=== PATIENT | female | born 1935 | race Caucasian/White ===

== ENCOUNTER 2017-04-05 21:21 | Inpatient (IN) | payer MEDICARE, BC ==
[2017-04-06] MEDS ORDERED: NORCO 5/325 MG PO PRN (06:00)
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
[2017-04-06] MEDS: Advair Hfa 230/21 Mcg COMMON CANISTER IH SCH ×2 (08:30→21:23)
[2017-04-06 09:28] LABS: BASOPHIL % 0.2 % (0.0-0.4); Eosinophil % 2.2 % (0.00-5.0); Lymphocytes % 18.5 % (24.0-44.0); Mean Cell Volume 97.3 fl (78-100); Mean Corpuscular Hemoglobin 28.8 pg (26-32); Mean Platelet Volume 10.3 fl (6-9.5); Monocytes % 14.1 % (0.0-12.0); Platelet Count 253 K/mm3 (150-450); Red Blood Count 3.33 M/mm3 (4.1-5.4); Red Cell Distribution Width 17.4 % (11.5-14.0); White Blood Count 4.2 K/mm3 (4.0-10.5)
[2017-04-06 09:37] LABS: INR 1.73 (0.8-3.0); PROTIME 19.7 SECONDS (9.95-12.35)
[2017-04-06] MEDS ORDERED: MILK OF MAGNESIA 30 ML NG PRN (09:54)
[2017-04-06] MEDS ORDERED: NON-FORMULARY ITEM (Ondansetron 4 MG) NG PRN (09:54)
[2017-04-06] MEDS ORDERED: Dulcolax 10 MG SUPP PR PRN (09:54)
[2017-04-06 09:56] LABS: Collection Type VOID; Leukocyte Esterase 2+ (NEGATIVE)
[2017-04-06 09:57] LABS: ADD URINE CULTURE? YES (NO); Bilirubin NEGATIVE (NEGATIVE); Blood 250 Ery/ul (0-5); COMPLETE URINE MICROSCOPIC? YES; Glucose NEGATIVE (NEGATIVE)
[2017-04-06] MEDS ORDERED: OCEAN Nasal Spray NS PRN (10:00)
[2017-04-06] MEDS ORDERED: ZINC SULFATE 220 MG NG SCH (10:00)
[2017-04-06] MEDS ORDERED: CALCIUM CARBONATE NG SCH (10:00)
[2017-04-06] MEDS ORDERED: PULMICORT 0.5 MG/2 ML RESPULES IH SCH (10:00)
[2017-04-06] MEDS ORDERED: [UNRECOGNIZED DRUG - OTHER] NG SCH (10:00)
[2017-04-06] MEDS ORDERED: NON-FORMULARY ITEM (Lansoprazole [Lansoprazole] 30 MG) NG SCH (10:00)
[2017-04-06] MEDS ORDERED: MULTIVITAMIN WITH MINERALS NG SCH (10:00)
[2017-04-06] MEDS ORDERED: VITAMIN D2 NG SCH (10:00)
[2017-04-06 10:05] LABS: Bacteria MANY /HPF (NEGATIVE); Epithelial Cells FEW /HPF (FEW); WBC >100 /HPF (0-5)
[2017-04-06 10:08] LABS: ALBUMIN 2.4 g/dL (3.4-5.0); ALKALINE PHOSPHATASE 191 U/L (46-116); ANION GAP 8.3 MEQ/L (5-15); BLOOD UREA NITROGEN 26 mg/dL (9-20); CHLORIDE 104 mEq/L (98-107); Carbon Dioxide 33.4 mEq/L (21-32); Glucose 98 MG/DL (70-110); Potassium 3.8 mEq/L (3.5-5.1); SGOT/AST 24 U/L (15-37); SGPT/ALT 19 U/L (12-78); SODIUM 142 mEq/L (136-145); Total Protein 6.6 gm/dL (6.4-8.2)
[2017-04-06] MEDS ORDERED: MEDICATION INTERVENTION MC PRN (10:44)
[2017-04-06] MEDS: ENOXAPARIN SODIUM SQ SCH ×2 (11:19→23:16)
[2017-04-06] MEDS: Ditropan 5 MG NG SCH ×2 (11:19→23:16)
[2017-04-06] MEDS: Lexapro 10 MG NG SCH (11:21)
[2017-04-06] MEDS: Flonase NASAL NS SCH ×2 (11:21→23:20)
[2017-04-06] MEDS: Vitamin C 500 MG NG SCH (11:22)
[2017-04-06] MEDS: THERAGRAN MULTIVITAMIN PO SCH (11:22)
[2017-04-06] MEDS: SYNTHROID 50 MCG NG SCH (11:22)
[2017-04-06] MEDS: Robitussin 100 MG/5 ML NG SCH ×5 (11:23→22:35)
[2017-04-06] MEDS: PERIDEX MM SCH ×2 (11:24→23:20)
[2017-04-06] MEDS: Protonix 40MG Tablet PEG SCH (11:24)
[2017-04-06] MEDS: Lopressor 25MG Tab PO SCH ×2 (11:25→21:05)
[2017-04-06] MEDS: NORVASC 5 MG NG SCH (11:25)
[2017-04-06] MEDS: Calcium 500MG W/Vit D Tablet NG SCH ×2 (11:34→21:06)
[2017-04-06] MEDS: Lidoderm Patch 5% TOP SCH (11:46)
[2017-04-06] MEDS ORDERED: NORCO 5/325 MG PO SCH (12:00)
[2017-04-06] MEDS: BACTRIM DS TABLET PO SCH (17:24)
[2017-04-06] MEDS ORDERED: Coumadin 5 MG NG SCH (18:00)
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
[2017-04-06] MEDS: NORCO 5/325 MG PO PRN (21:04)
[2017-04-06] MEDS: ZOCOR 20MG NG SCH (21:05)
[2017-04-06] MEDS ORDERED: LIPITOR 40MG NG SCH (22:00)
[2017-04-06] MEDS ORDERED: PYRIDOXINE HCL NG SCH (22:00)
[2017-04-06] MEDS ORDERED: MELATONIN NG SCH (22:00)
[2017-04-07] MEDS: Robitussin 100 MG/5 ML NG SCH ×7 (02:35→21:58)
[2017-04-07] MEDS: Advair Hfa 230/21 Mcg COMMON CANISTER IH SCH ×2 (07:22→19:09)
[2017-04-07] MEDS: BACTRIM DS TABLET PO SCH ×2 (07:52→17:23)
[2017-04-07] MEDS: Calcium 500MG W/Vit D Tablet NG SCH ×2 (10:13→22:03)
[2017-04-07] MEDS: SYNTHROID 50 MCG NG SCH (10:13)
[2017-04-07] MEDS: Lexapro 10 MG NG SCH (10:13)
[2017-04-07] MEDS: NORVASC 5 MG NG SCH (10:13)
[2017-04-07] MEDS: Protonix 40MG Tablet PEG SCH (10:13)
[2017-04-07] MEDS: THERAGRAN MULTIVITAMIN PO SCH (10:13)
[2017-04-07] MEDS: Lopressor 25MG Tab PO SCH ×2 (10:14→21:38)
[2017-04-07] MEDS: Vitamin C 500 MG NG SCH (10:14)
[2017-04-07] MEDS: Ditropan 5 MG NG SCH ×2 (10:15→22:03)
[2017-04-07] MEDS: PERIDEX MM SCH ×3 (10:57→21:57)
[2017-04-07] MEDS: Lidoderm Patch 5% TOP SCH (11:02)
[2017-04-07] MEDS: ENOXAPARIN SODIUM SQ SCH ×2 (11:05→22:03)
[2017-04-07] MEDS: Zinc Gluconate 50 MG PO SCH (11:05)
[2017-04-07] MEDS: Flonase NASAL NS SCH ×3 (11:05→21:55)
[2017-04-07] MEDS ORDERED: Coumadin 5 MG NG SCH (18:00)
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
[2017-04-07] MEDS: ZOCOR 20MG NG SCH (21:52)
[2017-04-07] MEDS: NORCO 5/325 MG PO PRN (23:48)
[2017-04-08] MEDS: Robitussin 100 MG/5 ML NG SCH ×4 (02:22→14:33)
[2017-04-08 06:13] LABS: INR 3.31 (0.8-3.0); PROTIME 37.9 SECONDS (9.95-12.35)
[2017-04-08] MEDS: Advair Hfa 230/21 Mcg COMMON CANISTER IH SCH ×2 (07:32→19:49)
[2017-04-08] MEDS: BACTRIM DS TABLET PO SCH ×2 (08:03→17:41)
--- NOTE | 2017-04-08 08:44 | PCM.NOTE ---
Date and Time: 04/08/17 08 Subjective Assessment: doing well did well with the water with speech yesterday took a few steps from the bed to the chair yesterday she states pain is controlled right now and "as expected" she denies nausea states it does come and go at times. she states her pain in her legs is improving every day. no shortness of breath now. no chest pain Objective Exam General Appearance: no apparent distress, alert Neurologic Exam: alert, cooperative, normal mood/affect Skin Exam: normal color, warm, dry Eye Exam: PERRL, EOMI, eyes nml inspection Ears, Nose, Throat Exam: pharynx normal, moist mucous membranes Neck Exam: normal inspection, non-tender, supple Respiratory Exam: normal breath sounds, lungs clear, No respiratory distress Cardiovascular Exam: regular rate/rhythm, murmur, No edema Gastrointestinal/Abdomen Exam: soft, No tenderness, No mass Extremity Exam: other (right leg wrapped able to move toes warm lower extremity no swelling left leg in walking boot) Back Exam: normal inspection, normal range of motion Pelvic Exam: deferred Rectal Exam: deferred OBJECTIVE DATA Vital Signs: Vital Signs - 24 hr Temp Pulse Resp BP Pulse Ox 04/08/17 08:00 98 F 55 L 18 162/70 97 04/08/17 07:35 56 L 16 97 04/08/17 04:08 98.0 F 54 L 15 166/65 96 04/08/17 00:00 98.5 F 63 20 141/68 93 L 04/07/17 21:26 58 L 16 96 04/07/17 20:00 98.3 F 64 17 147/66 95 04/07/17 16:00 97.9 F 67 20 157/69 98 04/07/17 12:00 98.3 F 58 L 20 134/64 96 04/07/17 10:00 58 L 16 96 Oxygen-Last 24 hours O2 Percentage 2 Liters = 28% O2 Percentage 2 Liters = 28% O2 Percentage 2 Liters = 28% O2 Percentage 2 Liters = 28% O2 Percentage 2 Liters = 28% O2 Percentage 2 Liters = 28% Pain Assessment - Last Documented Pain Intensity 1 Pain Scale Used FLACC Intake and Output: Intake & Output 04/05/17 04/06/17 04/07/17 04/08/17 11:59 11:59 11:59 11:59 Intake Total 460 400 Output Total 1700 650 350 Balance -1700 -190 50 Weight 70.806 kg Lab Results: Lab Results-Last 24 Hours 04/08/17 Range/Units 05:50 INR 3.31 H (0.8-3.0) Radiology Exams: Radiology Procedures Category Date Time Status MODIFIED BARIUM SWALLOW (RAD) [MODIFIED BARIUM SWALLOW Exams 04/06/17 13:00 Completed EXAM] Urgent Multi-Disciplinary Progress Notes: Multi-Disciplinary Progress Notes 04/08/17 02:56 Respiratory Note by Davina Silva around 2330 i asked the pt if she was ready to go on her bipap. pt replys no. i explained to her to call the nurse when she is ready to go to sleep. Initialized on 04/08/17 02:56 - END OF NOTE 04/07/17 21:35 RT Documentation Review by Davina Silva THIS CHART WAS REVIEWED. NOT SURE WHY IT'S NOT SHOWING UP HERE. Respiratory Assessments/Treatments reviewed by Davina Silva on 04/07/17 at 2135. Initialized on 04/07/17 21:35 - END OF NOTE 04/07/17 19:01 Speech Therapy Note by Manasa Zabala Swallow treatment: 18:20-18:50 Patient awake/alert in bed. Repositioned at 90 % upright. Trialled ice chips without clinical s/s of aspiration. Patient tolerated medication in applesauce without crushing without clinical s/s of aspiration. Recommend nursing to continue with this type of medication presentation. Thin liquid intake trials with cup presentation resulted in large cough/choke occurring 2/2 trials. When thin liquid intake presented via teaspoon, patient demonstrated no clinical s/s of aspiration 12/[address] to continue for swallow treatment. Continue current diet/liquid consistency. Recommend patient be allowed to consume ice chips when requested for pleasure. Nursing to notify physician. MS Ashlee, CCC/DATA [employer] Initialized on 04/07/17 19:01 - END OF NOTE Assessment/Plan (1) Acute delirium Current Visit: Yes Status: Acute Assessment & Plan: improving with prn meeks medication and uti treatment ng removed yesterday still low po intake but no evidence of aspiration continues to work with ST and PT on the Bactrim awaiting culture results peterson is out now as well. Code(s): R41.0 - DISORIENTATION, UNSPECIFIED (2) Open fracture of tibia and fibula Current Visit: Yes Status: Acute Code(s): S82.209B - UNSP FX SHAFT OF UNSP TIBIA, INIT FOR OPN FX TYPE I/2; S82.409B - UNSP FX SHAFT OF UNSP FIBULA, INIT FOR OPN FX TYPE I/2 (3) Pharyngeal dysphagia Current Visit: Yes Status: Acute Code(s): R13.13 - DYSPHAGIA, PHARYNGEAL PHASE (4) Moderate protein-calorie malnutrition Current Visit: Yes Status: Acute Code(s): E44.0 - MODERATE PROTEIN-CALORIE MALNUTRITION (5) History of mitral valve replacement Current Visit: Yes Status: Chronic Assessment & Plan: inr therapeutic today at 3.3 it looks like warfarin was just restarted on 04/05 possibly and rather large jump will hold warfarin today and repeat inr in am continue lovenox for 2 days of therapeutic bridge Code(s): Z95.2 - PRESENCE OF PROSTHETIC HEART VALVE (6) Hyperlipidemia Current Visit: Yes Status: Chronic Code(s): E78.5 - HYPERLIPIDEMIA, UNSPECIFIED (7) Hypothyroidism Current Visit: Yes Status: Chronic Code(s): E03.9 - HYPOTHYROIDISM, UNSPECIFIED (8) Hypertension Current Visit: Yes Status: Chronic Assessment & Plan: remains elevated will increase amlodipine from 2.5 to 5 mg Code(s): I10 - ESSENTIAL (PRIMARY) HYPERTENSION (9) GERD (gastroesophageal reflux disease) Current Visit: Yes Status: Chronic Code(s): K21.9 - GASTRO-ESOPHAGEAL REFLUX DISEASE WITHOUT ESOPHAGITIS (10) Constipation Current Visit: Yes Status: Chronic Code(s): K59.00 - CONSTIPATION, UNSPECIFIED (11) Wounds, multiple Current Visit: Yes Status: Acute Code(s): T07 - UNSPECIFIED MULTIPLE INJURIES (12) UTI (urinary tract infection) Current Visit: Yes Status: Acute Qualifiers: Urinary tract infection type: acute cystitis Code(s): N39.0 - URINARY TRACT INFECTION, SITE NOT SPECIFIED (13) Atrial fibrillation Current Visit: Yes Status: Resolved Code(s): I48.91 - UNSPECIFIED ATRIAL FIBRILLATION (14) Anemia Current Visit: Yes Status: Acute Code(s): D64.9 - ANEMIA, UNSPECIFIED
[2017-04-08] MEDS: Calcium 500MG W/Vit D Tablet NG SCH ×2 (10:22→22:21)
[2017-04-08] MEDS: THERAGRAN MULTIVITAMIN PO SCH (10:22)
[2017-04-08] MEDS: Lopressor 25MG Tab PO SCH ×2 (10:22→22:21)
[2017-04-08] MEDS: Protonix 40MG Tablet PEG SCH (10:22)
[2017-04-08] MEDS: Lexapro 10 MG NG SCH (10:22)
[2017-04-08] MEDS: SYNTHROID 50 MCG NG SCH (10:22)
[2017-04-08] MEDS: NORVASC 5 MG NG SCH (10:22)
[2017-04-08] MEDS: Vitamin C 500 MG NG SCH (10:22)
[2017-04-08] MEDS: Flonase NASAL NS SCH ×2 (10:23→22:22)
[2017-04-08] MEDS: PERIDEX MM SCH ×2 (10:23→22:31)
[2017-04-08] MEDS: Zinc Gluconate 50 MG PO SCH (10:24)
[2017-04-08] MEDS: Lidoderm Patch 5% TOP SCH (10:25)
[2017-04-08] MEDS: Ditropan 5 MG NG SCH ×2 (10:28→22:21)
[2017-04-08] MEDS: ENOXAPARIN SODIUM SQ SCH ×2 (10:28→22:22)
[2017-04-08] MEDS: ONDANSETRON ODT PO PRN ×2 (11:31→22:28)
[2017-04-08] MEDS ORDERED: Robitussin 100 MG/5 ML NG PRN (14:01)
[2017-04-08] MEDS: NORCO 5/325 MG PO PRN (14:34)
[2017-04-08] MEDS: ZOCOR 20MG NG SCH (22:21)
[2017-04-09] MEDS: Advair Hfa 230/21 Mcg COMMON CANISTER IH SCH (06:52)
[2017-04-09] MEDS: BACTRIM DS TABLET PO SCH (07:53)
[2017-04-09] MEDS: NORCO 5/325 MG PO PRN ×2 (08:18→15:50)
[2017-04-09] MEDS: ONDANSETRON ODT PO PRN (08:18)
[2017-04-09 09:29] LABS: PROTIME 73.4 SECONDS (9.95-12.35)
[2017-04-09 09:36] LABS: INR 6.52 (0.8-3.0)
[2017-04-09] MEDS ORDERED: Colace 100 MG PO SCH (10:00)
[2017-04-09] MEDS: THERAGRAN MULTIVITAMIN PO SCH (10:39)
[2017-04-09] MEDS: Ditropan 5 MG NG SCH (10:40)
[2017-04-09] MEDS: Lexapro 10 MG NG SCH (10:40)
[2017-04-09] MEDS: SYNTHROID 50 MCG NG SCH (10:40)
[2017-04-09] MEDS: Protonix 40MG Tablet PEG SCH (10:40)
[2017-04-09] MEDS: Lopressor 25MG Tab PO SCH (10:40)
[2017-04-09] MEDS: Vitamin C 500 MG NG SCH (10:40)
[2017-04-09] MEDS: Calcium 500MG W/Vit D Tablet NG SCH (10:41)
[2017-04-09] MEDS: NORVASC 5 MG NG SCH (10:41)
[2017-04-09] MEDS: Flonase NASAL NS SCH (10:41)
[2017-04-09] MEDS: Lidoderm Patch 5% TOP SCH (10:42)
[2017-04-09] MEDS: PERIDEX MM SCH (10:42)
[2017-04-09] MEDS: Zinc Gluconate 50 MG PO SCH (10:51)
[2017-04-09 12:08] VITALS: BP 135/63; PULSE 57; O2SAT 96
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
[2017-04-09] MEDS ORDERED: ZOFRAN ODT 4 MG PO PRN (13:15)
== END 2017-04-09 15:45 | disposition swing bed (61) | DRG 948 ==
LOC: MED SURG 21:21 → UNDOADMIN 21:21
PROVIDERS: ADMIT Family Medicine; ATTEND Family Medicine
DX: R41.0 Disorientation, unspecified (principal); E44.0 Moderate protein-calorie malnutrition; N39.0 Urinary tract infection, site not specified; I25.810 Atherosclerosis of coronary artery bypass graft(s) without angina pectoris; S82.301E Unspecified fracture of lower end of right tibia, subsequent encounter for open fracture type I or II with routine healing; S82.491 Other fracture of shaft of right fibula; T07 Unspecified multiple injuries; V89.2XXD Person injured in unspecified motor-vehicle accident, traffic, subsequent encounter; R13.13 Dysphagia, pharyngeal phase; Z95.2 Presence of prosthetic heart valve; E78.5 Hyperlipidemia, unspecified; I10 Essential (primary) hypertension; E03.9 Hypothyroidism, unspecified; K21.9 Gastro-esophageal reflux disease without esophagitis; K59.00 Constipation, unspecified; I48.91 Unspecified atrial fibrillation; D64.9 Anemia, unspecified; J45.909 Unspecified asthma, uncomplicated; G47.30 Sleep apnea, unspecified; F32.9 Major depressive disorder, single episode, unspecified; K44.9 Diaphragmatic hernia without obstruction or gangrene; Z79.01 Long term (current) use of anticoagulants; Z79.899 Other long term (current) drug therapy
CPT/HCPCS: 36415; 74230; 80053; 81000; 84443; 85025; 85610; 87077; 87086; 87186; 94002; 94003; 94640; 94760; A6457; J1642; J1650; Q0162; A9270-GY

== ENCOUNTER 2017-04-09 15:45 | Inpatient (IN) | payer MEDICARE, BC ==
[2017-04-09] MEDS ORDERED: Robitussin 100 MG/5 ML NG PRN (16:22)
[2017-04-09] MEDS ORDERED: Dulcolax 10 MG SUPP PR PRN (16:22)
[2017-04-09] MEDS ORDERED: ZOFRAN ODT 4 MG PO PRN (16:24)
[2017-04-09] MEDS ORDERED: MILK OF MAGNESIA 30 ML NG PRN (16:24)
[2017-04-09] MEDS ORDERED: OCEAN Nasal Spray NS PRN (16:25)
[2017-04-09] MEDS ORDERED: MILK OF MAGNESIA 30 ML PO PRN (17:06)
[2017-04-09] MEDS: Advair Hfa 230/21 Mcg COMMON CANISTER IH SCH (17:08)
[2017-04-09 17:16] LABS: ANION GAP 13.7 MEQ/L (5-15); Carbon Dioxide 29.5 mEq/L (21-32)
[2017-04-09] MEDS: BACTRIM DS TABLET PO SCH (17:40)
[2017-04-09] MEDS: ZOCOR 20MG PO SCH (21:16)
[2017-04-09] MEDS: Colace 100 MG PO SCH (21:16)
[2017-04-09] MEDS: Lopressor 25MG Tab PO SCH (21:17)
[2017-04-09] MEDS: Ditropan 5 MG PO SCH (21:19)
[2017-04-09] MEDS: Flonase NASAL NS SCH (21:33)
[2017-04-09] MEDS ORDERED: Calcium 500MG W/Vit D Tablet NG SCH (22:00)
[2017-04-09] MEDS ORDERED: PERIDEX MM SCH (22:00)
[2017-04-10] MEDS: NORCO 5/325 MG PO PRN ×4 (03:41→19:29)
[2017-04-10] MEDS: Advair Hfa 230/21 Mcg COMMON CANISTER IH SCH ×2 (05:23→17:24)
[2017-04-10 07:13] LABS: PROTIME 62.8 SECONDS (9.95-12.35)
[2017-04-10 07:18] LABS: INR 5.46 (0.8-3.0)
[2017-04-10] MEDS: BACTRIM DS TABLET PO SCH ×2 (08:50→17:00)
[2017-04-10] MEDS: Colace 100 MG PO SCH ×2 (08:58→21:52)
[2017-04-10] MEDS: SYNTHROID 50 MCG PO SCH (08:58)
[2017-04-10] MEDS: Ditropan 5 MG PO SCH ×2 (08:58→21:53)
[2017-04-10] MEDS: Lopressor 25MG Tab PO SCH ×2 (09:00→21:52)
[2017-04-10] MEDS: Protonix 40MG Tablet PO SCH (09:00)
[2017-04-10] MEDS: Lexapro 10 MG PO SCH (09:01)
[2017-04-10] MEDS: NORVASC 5 MG PO SCH (09:01)
[2017-04-10] MEDS: Flonase NASAL NS SCH ×2 (09:01→21:57)
[2017-04-10] MEDS: Lidoderm Patch 5% TOP SCH (09:02)
[2017-04-10] MEDS: ZOFRAN ODT 4 MG PO PRN (09:02)
[2017-04-10] MEDS ORDERED: THERAGRAN MULTIVITAMIN PO SCH (10:00)
[2017-04-10] MEDS ORDERED: Vitamin C 500 MG NG SCH (10:00)
[2017-04-10] MEDS ORDERED: Zinc Gluconate 50 MG PO SCH (10:00)
[2017-04-10] MEDS ORDERED: Aplisol ID SCH (10:00)
[2017-04-10] MEDS: ZOCOR 20MG PO SCH (21:52)
[2017-04-11 07:27] LABS: INR 4.76 (0.8-3.0); PROTIME 54.6 SECONDS (9.95-12.35)
[2017-04-11] MEDS: BACTRIM DS TABLET PO SCH ×2 (08:56→17:46)
[2017-04-11] MEDS: Colace 100 MG PO SCH ×2 (08:56→22:23)
[2017-04-11] MEDS: Protonix 40MG Tablet PO SCH (08:56)
[2017-04-11] MEDS: NORVASC 5 MG PO SCH (08:56)
[2017-04-11] MEDS: Lidoderm Patch 5% TOP SCH (08:57)
[2017-04-11] MEDS: Lexapro 10 MG PO SCH (08:57)
[2017-04-11] MEDS: Lopressor 25MG Tab PO SCH ×2 (08:57→22:23)
[2017-04-11] MEDS: SYNTHROID 50 MCG PO SCH (08:57)
[2017-04-11] MEDS: Ditropan 5 MG PO SCH ×2 (09:14→22:23)
[2017-04-11] MEDS: NORCO 5/325 MG PO PRN ×2 (09:25→16:06)
[2017-04-11] MEDS: Flonase NASAL NS SCH ×2 (09:31→22:33)
[2017-04-11] MEDS: Advair Hfa 230/21 Mcg COMMON CANISTER IH SCH (19:24)
[2017-04-11] MEDS: ZOCOR 20MG PO SCH (22:23)
[2017-04-12 06:37] LABS: INR 3.94 (0.8-3.0); PROTIME 45.1 SECONDS (9.95-12.35)
[2017-04-12] MEDS: Advair Hfa 230/21 Mcg COMMON CANISTER IH SCH ×2 (07:06→20:08)
[2017-04-12] MEDS: BACTRIM DS TABLET PO SCH ×2 (08:10→17:12)
[2017-04-12] MEDS: Lexapro 10 MG PO SCH (10:54)
[2017-04-12] MEDS: Flonase NASAL NS SCH ×2 (10:54→21:51)
[2017-04-12] MEDS: Ditropan 5 MG PO SCH ×2 (10:55→21:48)
[2017-04-12] MEDS: Colace 100 MG PO SCH ×2 (10:55→21:48)
[2017-04-12] MEDS: Lidoderm Patch 5% TOP SCH ×2 (10:55→13:07)
[2017-04-12] MEDS: Protonix 40MG Tablet PO SCH (10:56)
[2017-04-12] MEDS: Lopressor 25MG Tab PO SCH ×2 (10:56→21:48)
[2017-04-12] MEDS: NORVASC 5 MG PO SCH (10:56)
[2017-04-12] MEDS: NORCO 5/325 MG PO PRN ×2 (11:00→17:12)
[2017-04-12] MEDS: ZOFRAN ODT 4 MG PO PRN (17:17)
[2017-04-12] MEDS ORDERED: Coumadin 2 MG PO SCH (18:00)
[2017-04-12] MEDS: ZOCOR 20MG PO SCH (21:48)
[2017-04-13 06:25] LABS: Mean Platelet Volume 9.8 fl (6-9.5); Platelet Count 281 K/mm3 (150-450); Red Blood Count 3.15 M/mm3 (4.1-5.4); Red Cell Distribution Width 16.8 % (11.5-14.0); White Blood Count 4.1 K/mm3 (4.0-10.5)
[2017-04-13 06:27] LABS: Mean Corpuscular Hemoglobin 28.5 pg (26-32)
[2017-04-13 06:45] LABS: INR 4.26 (0.8-3.0); PROTIME 48.9 SECONDS (9.95-12.35)
[2017-04-13] MEDS: Advair Hfa 230/21 Mcg COMMON CANISTER IH SCH ×2 (07:00→19:28)
[2017-04-13 07:34] LABS: ANISOCYTOSIS 1+; Eosinophil 1 % (0.00-3.0); Hypochromia 1+; Platelet Estimate NORMAL (NORMAL); Total Cells Counted 100
[2017-04-13] MEDS: BACTRIM DS TABLET PO SCH ×2 (07:55→17:11)
[2017-04-13] MEDS: Ditropan 5 MG PO SCH ×2 (09:06→21:57)
[2017-04-13] MEDS: Colace 100 MG PO SCH ×2 (09:06→21:57)
[2017-04-13] MEDS: NORVASC 5 MG PO SCH (09:06)
[2017-04-13] MEDS: Lexapro 10 MG PO SCH (09:07)
[2017-04-13] MEDS: SYNTHROID 50 MCG PO SCH (09:07)
[2017-04-13] MEDS: Protonix 40MG Tablet PO SCH (09:07)
[2017-04-13] MEDS: Lopressor 25MG Tab PO SCH ×2 (09:09→21:56)
[2017-04-13] MEDS: Lidoderm Patch 5% TOP SCH (09:13)
[2017-04-13] MEDS: Flonase NASAL NS SCH ×2 (09:17→22:09)
[2017-04-13] MEDS: NORCO 5/325 MG PO PRN (15:26)
[2017-04-13] MEDS: ZOCOR 20MG PO SCH (21:57)
[2017-04-14 05:58] LABS: INR 4.23 (0.8-3.0); PROTIME 48.5 SECONDS (9.95-12.35)
[2017-04-14] MEDS: Advair Hfa 230/21 Mcg COMMON CANISTER IH SCH ×3 (07:32→18:02)
[2017-04-14] MEDS: NORCO 5/325 MG PO PRN ×2 (07:53→14:09)
[2017-04-14] MEDS: BACTRIM DS TABLET PO SCH ×2 (07:54→17:15)
[2017-04-14] MEDS: Ditropan 5 MG PO SCH ×2 (09:00→21:59)
[2017-04-14] MEDS: SYNTHROID 50 MCG PO SCH (09:00)
[2017-04-14] MEDS: Protonix 40MG Tablet PO SCH (09:00)
[2017-04-14] MEDS: Lexapro 10 MG PO SCH (09:02)
[2017-04-14] MEDS: Colace 100 MG PO SCH ×2 (09:02→21:59)
[2017-04-14] MEDS: NORVASC 5 MG PO SCH (09:02)
[2017-04-14] MEDS: Flonase NASAL NS SCH ×2 (09:04→21:59)
[2017-04-14] MEDS: Lopressor 25MG Tab PO SCH ×2 (09:04→21:58)
[2017-04-14] MEDS: Lidoderm Patch 5% TOP SCH (09:07)
[2017-04-14] MEDS: ZOCOR 20MG PO SCH (21:59)
[2017-04-15] MEDS: Advair Hfa 230/21 Mcg COMMON CANISTER IH SCH ×2 (09:11→19:08)
[2017-04-15] MEDS: Lidoderm Patch 5% TOP SCH (09:18)
[2017-04-15] MEDS: SYNTHROID 50 MCG PO SCH (09:19)
[2017-04-15] MEDS: Protonix 40MG Tablet PO SCH (09:19)
[2017-04-15] MEDS: NORVASC 5 MG PO SCH (09:19)
[2017-04-15] MEDS: Colace 100 MG PO SCH ×2 (09:19→21:46)
[2017-04-15] MEDS: Lexapro 10 MG PO SCH (09:20)
[2017-04-15] MEDS: Ditropan 5 MG PO SCH ×2 (09:20→21:46)
[2017-04-15] MEDS: Lopressor 25MG Tab PO SCH ×2 (09:20→21:46)
[2017-04-15] MEDS: Flonase NASAL NS SCH ×2 (09:24→22:05)
[2017-04-15] MEDS: NORCO 5/325 MG PO PRN ×2 (11:42→21:46)
[2017-04-15] MEDS: ZOCOR 20MG PO SCH (21:46)
[2017-04-16 06:29] LABS: INR 1.67 (0.8-3.0)
[2017-04-16] MEDS: Advair Hfa 230/21 Mcg COMMON CANISTER IH SCH ×2 (07:33→19:39)
[2017-04-16] MEDS: SYNTHROID 50 MCG PO SCH (09:25)
[2017-04-16] MEDS: Ditropan 5 MG PO SCH ×2 (09:25→21:55)
[2017-04-16] MEDS: Lexapro 10 MG PO SCH (09:25)
[2017-04-16] MEDS: Lopressor 25MG Tab PO SCH ×2 (09:25→21:55)
[2017-04-16] MEDS: Colace 100 MG PO SCH ×2 (09:25→21:55)
[2017-04-16] MEDS: NORVASC 5 MG PO SCH (09:25)
[2017-04-16] MEDS: Protonix 40MG Tablet PO SCH (09:26)
[2017-04-16] MEDS: Lidoderm Patch 5% TOP SCH (09:26)
[2017-04-16] MEDS: Flonase NASAL NS SCH ×2 (09:26→21:55)
[2017-04-16] MEDS: NORCO 5/325 MG PO PRN ×2 (11:24→18:27)
[2017-04-16] MEDS: Coumadin 2 MG PO SCH (17:04)
[2017-04-16] MEDS: ZOCOR 20MG PO SCH (21:55)
[2017-04-17 06:06] LABS: INR 1.47 (0.8-3.0); PROTIME 16.7 SECONDS (9.95-12.35)
[2017-04-17] MEDS: Advair Hfa 230/21 Mcg COMMON CANISTER IH SCH ×2 (07:39→19:25)
[2017-04-17] MEDS: NORCO 5/325 MG PO PRN ×2 (08:11→19:08)
[2017-04-17] MEDS: Lopressor 25MG Tab PO SCH ×2 (09:11→22:03)
[2017-04-17] MEDS: Colace 100 MG PO SCH ×2 (09:13→22:02)
[2017-04-17] MEDS: Ditropan 5 MG PO SCH ×2 (09:14→22:03)
[2017-04-17] MEDS: Protonix 40MG Tablet PO SCH (09:14)
[2017-04-17] MEDS: NORVASC 5 MG PO SCH (09:14)
[2017-04-17] MEDS: SYNTHROID 50 MCG PO SCH (09:14)
[2017-04-17] MEDS: Lexapro 10 MG PO SCH (09:14)
[2017-04-17] MEDS: Flonase NASAL NS SCH ×2 (09:15→22:03)
[2017-04-17] MEDS: Lidoderm Patch 5% TOP SCH (09:16)
[2017-04-17] MEDS: Coumadin 2 MG PO SCH (17:13)
[2017-04-17] MEDS: ZOCOR 20MG PO SCH (22:03)
[2017-04-18 05:53] LABS: INR 1.42 (0.8-3.0); PROTIME 16.1 SECONDS (9.95-12.35)
[2017-04-18] MEDS: Advair Hfa 230/21 Mcg COMMON CANISTER IH SCH ×2 (07:55→19:00)
[2017-04-18] MEDS: Lidoderm Patch 5% TOP SCH (07:55)
[2017-04-18] MEDS: Protonix 40MG Tablet PO SCH (09:43)
[2017-04-18] MEDS: Lexapro 10 MG PO SCH (09:43)
[2017-04-18] MEDS: NORVASC 5 MG PO SCH (09:43)
[2017-04-18] MEDS: Colace 100 MG PO SCH ×2 (09:43→21:11)
[2017-04-18] MEDS: Lopressor 25MG Tab PO SCH ×2 (09:44→21:09)
[2017-04-18] MEDS: Ditropan 5 MG PO SCH ×2 (09:44→21:11)
[2017-04-18] MEDS: SYNTHROID 50 MCG PO SCH (09:44)
[2017-04-18] MEDS: Flonase NASAL NS SCH ×2 (09:45→21:12)
[2017-04-18] MEDS: NORCO 5/325 MG PO PRN (12:51)
[2017-04-18] MEDS: Coumadin 2 MG PO SCH (17:15)
[2017-04-18] MEDS: ZOCOR 20MG PO SCH (21:10)
[2017-04-19] MEDS: Lidoderm Patch 5% TOP SCH (09:29)
[2017-04-19] MEDS: Lexapro 10 MG PO SCH (09:30)
[2017-04-19] MEDS: Colace 100 MG PO SCH ×2 (09:30→23:23)
[2017-04-19] MEDS: Lopressor 25MG Tab PO SCH ×2 (09:31→23:27)
[2017-04-19] MEDS: NORVASC 5 MG PO SCH (09:32)
[2017-04-19] MEDS: Protonix 40MG Tablet PO SCH (09:32)
[2017-04-19] MEDS: Ditropan 5 MG PO SCH ×2 (09:34→23:23)
[2017-04-19] MEDS: SYNTHROID 50 MCG PO SCH (09:34)
[2017-04-19] MEDS: Flonase NASAL NS SCH ×2 (09:36→23:23)
[2017-04-19] MEDS: NORCO 5/325 MG PO PRN (09:41)
[2017-04-19] MEDS: Advair Hfa 230/21 Mcg COMMON CANISTER IH SCH ×2 (11:09→18:52)
--- NOTE | 2017-04-19 13:01 | XRAY ---
Indication: Status post ankle ORIF surgery. Comparison: None at our institution. 3 views of the right ankle demonstrates normal ankle mortise with tri-malleolar fracture in good apposition/alignment with intact fixation plates/screws. Also nondisplaced comminuted patellar fracture. No obvious healing/bridging callus. Incidental mid tibial radiolucencies from old hardware. No other bony, articular, or soft tissue abnormalities.
[2017-04-19] MEDS ORDERED: TYLENOL 325 MG PO PRN (13:35)
[2017-04-19] MEDS: PERCOCET TABLET 5/325MG PO PRN ×2 (13:46→23:24)
[2017-04-19] MEDS: Coumadin 2 MG PO SCH (17:34)
[2017-04-19] MEDS: ZOCOR 20MG PO SCH (23:24)
[2017-04-20] MEDS: Advair Hfa 230/21 Mcg COMMON CANISTER IH SCH ×2 (07:02→18:53)
[2017-04-20] MEDS: Lidoderm Patch 5% TOP SCH (07:50)
[2017-04-20] MEDS: Lexapro 10 MG PO SCH (11:28)
[2017-04-20] MEDS: Ditropan 5 MG PO SCH ×2 (11:29→22:27)
[2017-04-20] MEDS: Colace 100 MG PO SCH ×2 (11:29→22:27)
[2017-04-20] MEDS: Lopressor 25MG Tab PO SCH ×2 (11:29→22:28)
[2017-04-20] MEDS: NORVASC 5 MG PO SCH (11:29)
[2017-04-20] MEDS: Protonix 40MG Tablet PO SCH (11:30)
[2017-04-20] MEDS: SYNTHROID 50 MCG PO SCH (11:30)
[2017-04-20] MEDS: Flonase NASAL NS SCH ×2 (11:31→22:27)
[2017-04-20] MEDS: PERCOCET TABLET 5/325MG PO PRN ×2 (11:36→20:01)
[2017-04-20] MEDS: Coumadin 2 MG PO SCH (17:17)
[2017-04-20] MEDS: ZOCOR 20MG PO SCH (22:30)
[2017-04-21 06:05] LABS: INR 1.52 (0.8-3.0); PROTIME 17.3 SECONDS (9.95-12.35)
[2017-04-21] MEDS: Advair Hfa 230/21 Mcg COMMON CANISTER IH SCH ×2 (08:43→18:54)
[2017-04-21] MEDS: Lexapro 10 MG PO SCH (09:22)
[2017-04-21] MEDS: SYNTHROID 50 MCG PO SCH (09:23)
[2017-04-21] MEDS: Colace 100 MG PO SCH ×2 (09:23→21:56)
[2017-04-21] MEDS: Ditropan 5 MG PO SCH ×2 (09:25→21:56)
[2017-04-21] MEDS: Protonix 40MG Tablet PO SCH (09:25)
[2017-04-21] MEDS: Lopressor 25MG Tab PO SCH ×2 (09:25→21:57)
[2017-04-21] MEDS: PERCOCET TABLET 5/325MG PO PRN ×2 (09:26→20:19)
[2017-04-21] MEDS: Flonase NASAL NS SCH ×2 (09:27→21:56)
[2017-04-21] MEDS: NORVASC 5 MG PO SCH (09:27)
[2017-04-21] MEDS: Lidoderm Patch 5% TOP SCH (09:28)
[2017-04-21] MEDS ORDERED: Aplisol ID SCH (10:00)
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
[2017-04-21] MEDS: Coumadin 2 MG PO SCH (17:50)
[2017-04-21] MEDS: ZOCOR 20MG PO SCH (21:56)
[2017-04-22] MEDS: Advair Hfa 230/21 Mcg COMMON CANISTER IH SCH ×2 (07:00→18:41)
[2017-04-22] MEDS: Lidoderm Patch 5% TOP SCH (08:03)
[2017-04-22] MEDS: NORVASC 5 MG PO SCH (09:58)
[2017-04-22] MEDS: Lexapro 10 MG PO SCH (09:58)
[2017-04-22] MEDS: PERCOCET TABLET 5/325MG PO PRN ×2 (09:59→18:45)
[2017-04-22] MEDS: SYNTHROID 50 MCG PO SCH (09:59)
[2017-04-22] MEDS: Colace 100 MG PO SCH ×2 (09:59→21:35)
[2017-04-22] MEDS: Protonix 40MG Tablet PO SCH (09:59)
[2017-04-22] MEDS: Ditropan 5 MG PO SCH ×2 (10:00→21:35)
[2017-04-22] MEDS: Flonase NASAL NS SCH ×2 (10:01→21:36)
[2017-04-22] MEDS: Lopressor 25MG Tab PO SCH ×2 (10:05→21:37)
[2017-04-22] MEDS: Coumadin 2 MG PO SCH (17:15)
[2017-04-22] MEDS: ZOCOR 20MG PO SCH (21:34)
[2017-04-23 05:43] LABS: INR 2.48 (0.8-3.0); PROTIME 28.3 SECONDS (9.95-12.35)
[2017-04-23] MEDS: Advair Hfa 230/21 Mcg COMMON CANISTER IH SCH ×2 (07:08→18:59)
[2017-04-23] MEDS: Colace 100 MG PO SCH ×2 (09:53→21:06)
[2017-04-23] MEDS: SYNTHROID 50 MCG PO SCH (09:53)
[2017-04-23] MEDS: NORVASC 5 MG PO SCH (09:53)
[2017-04-23] MEDS: Ditropan 5 MG PO SCH ×2 (09:53→21:06)
[2017-04-23] MEDS: Protonix 40MG Tablet PO SCH (09:53)
[2017-04-23] MEDS: Lidoderm Patch 5% TOP SCH (09:54)
[2017-04-23] MEDS: Flonase NASAL NS SCH ×2 (09:54→21:06)
[2017-04-23] MEDS: Lexapro 10 MG PO SCH (09:54)
[2017-04-23] MEDS: Lopressor 25MG Tab PO SCH ×2 (09:55→21:06)
[2017-04-23] MEDS: PERCOCET TABLET 5/325MG PO PRN ×2 (13:28→20:02)
[2017-04-23] MEDS: Coumadin 2 MG PO SCH (17:33)
[2017-04-23] MEDS: ZOCOR 20MG PO SCH (21:06)
[2017-04-24] MEDS: Lidoderm Patch 5% TOP SCH (07:59)
[2017-04-24] MEDS: Lopressor 25MG Tab PO SCH ×2 (08:02→21:35)
[2017-04-24] MEDS: Colace 100 MG PO SCH ×2 (08:02→21:35)
[2017-04-24] MEDS: Ditropan 5 MG PO SCH ×2 (08:02→21:35)
[2017-04-24] MEDS: Lexapro 10 MG PO SCH (08:02)
[2017-04-24] MEDS: SYNTHROID 50 MCG PO SCH (08:02)
[2017-04-24] MEDS: NORVASC 5 MG PO SCH (08:04)
[2017-04-24] MEDS: Flonase NASAL NS SCH ×2 (08:04→21:36)
[2017-04-24] MEDS: Protonix 40MG Tablet PO SCH (08:04)
[2017-04-24] MEDS: Advair Hfa 230/21 Mcg COMMON CANISTER IH SCH ×2 (08:41→18:43)
[2017-04-24] MEDS: PERCOCET TABLET 5/325MG PO PRN ×3 (11:27→21:34)
[2017-04-24] MEDS: Coumadin 2 MG PO SCH (18:02)
[2017-04-24] MEDS: ZOCOR 20MG PO SCH (21:35)
[2017-04-25] MEDS: Advair Hfa 230/21 Mcg COMMON CANISTER IH SCH ×2 (07:21→19:34)
[2017-04-25] MEDS: Lidoderm Patch 5% TOP SCH (09:05)
[2017-04-25] MEDS: Colace 100 MG PO SCH ×2 (10:07→21:33)
[2017-04-25] MEDS: Protonix 40MG Tablet PO SCH (10:08)
[2017-04-25] MEDS: NORVASC 5 MG PO SCH (10:08)
[2017-04-25] MEDS: SYNTHROID 50 MCG PO SCH (10:08)
[2017-04-25] MEDS: Lopressor 25MG Tab PO SCH ×2 (10:09→21:34)
[2017-04-25] MEDS: Ditropan 5 MG PO SCH ×2 (10:09→21:34)
[2017-04-25] MEDS: Flonase NASAL NS SCH ×2 (10:10→21:37)
[2017-04-25] MEDS: Lexapro 10 MG PO SCH (10:10)
[2017-04-25 10:40] LABS: INR 4.22 (0.8-3.0); PROTIME 48.4 SECONDS (9.95-12.35)
[2017-04-25] MEDS: PERCOCET TABLET 5/325MG PO PRN ×2 (12:18→21:37)
[2017-04-25] MEDS: ZOCOR 20MG PO SCH (21:33)
[2017-04-26 06:46] LABS: INR 4.02 (0.8-3.0); PROTIME 46.1 SECONDS (9.95-12.35)
[2017-04-26] MEDS: Advair Hfa 230/21 Mcg COMMON CANISTER IH SCH ×2 (07:00→19:24)
[2017-04-26] MEDS: Flonase NASAL NS SCH ×2 (09:41→22:33)
[2017-04-26] MEDS: Lexapro 10 MG PO SCH (09:41)
[2017-04-26] MEDS: Protonix 40MG Tablet PO SCH (09:42)
[2017-04-26] MEDS: Ditropan 5 MG PO SCH ×2 (09:42→22:32)
[2017-04-26] MEDS: SYNTHROID 50 MCG PO SCH (09:42)
[2017-04-26] MEDS: NORVASC 5 MG PO SCH (09:42)
[2017-04-26] MEDS: Lopressor 25MG Tab PO SCH ×2 (09:42→22:33)
[2017-04-26] MEDS: Colace 100 MG PO SCH ×2 (09:42→22:33)
[2017-04-26] MEDS: PERCOCET TABLET 5/325MG PO PRN ×3 (09:47→22:31)
[2017-04-26] MEDS: Lidoderm Patch 5% TOP SCH (12:43)
[2017-04-26] MEDS: Coumadin 2.5 MG PO SCH ×2 (17:03→17:10)
[2017-04-26] MEDS: ZOCOR 20MG PO SCH (22:32)
[2017-04-27] MEDS: Advair Hfa 230/21 Mcg COMMON CANISTER IH SCH ×2 (05:46→19:39)
[2017-04-27] MEDS: PERCOCET TABLET 5/325MG PO PRN ×4 (05:55→19:34)
[2017-04-27] MEDS: Lidoderm Patch 5% TOP SCH (07:20)
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
--- NOTE | 2017-04-27 08:43 | XRAY ---
Indication: Posterior lower rib pain, erythema, and swelling following fall. Comparison: None 2 views of the right ribs demonstrates osteopenia, healing 3rd/4th/5h/8th/9th/10th/11th/12th rib fractures, old 2nd rib fracture, healing mid clavicle fracture, mild multilevel spinal degenerative spondylosis, previous cardiac valvular replacement surgery, mediastinal calcified nodes, and large right lung base opacity either infiltrate/atelectasis or large hiatal hernia. Comment: Preliminary interpretation was made by [facility]. No critical discrepancy.
[2017-04-27] MEDS: Flonase NASAL NS SCH ×2 (09:44→23:19)
[2017-04-27] MEDS: Ditropan 5 MG PO SCH ×2 (09:45→23:18)
[2017-04-27] MEDS: Colace 100 MG PO SCH ×2 (09:46→23:18)
[2017-04-27] MEDS: SYNTHROID 50 MCG PO SCH (09:46)
[2017-04-27] MEDS: Lexapro 10 MG PO SCH (09:46)
[2017-04-27] MEDS: NORVASC 5 MG PO SCH (09:46)
[2017-04-27] MEDS: Protonix 40MG Tablet PO SCH (09:46)
[2017-04-27] MEDS: Lopressor 25MG Tab PO SCH ×2 (09:46→23:18)
[2017-04-27] MEDS: Coumadin 2.5 MG PO SCH (18:00)
[2017-04-27] MEDS: ZOCOR 20MG PO SCH (23:16)
[2017-04-28] MEDS: PERCOCET TABLET 5/325MG PO PRN ×3 (04:36→19:49)
[2017-04-28 05:39] LABS: Granulocytes % 52.1 % (36.0-66.0); Lymphocytes % 32.1 % (24.0-44.0); Mean Cell Volume 94.3 fl (78-100); Mean Platelet Volume 9.7 fl (6-9.5); Monocytes % 12.8 % (0.0-12.0); Platelet Count 174 K/mm3 (150-450); Red Blood Count 3.49 M/mm3 (4.1-5.4); White Blood Count 3.1 K/mm3 (4.0-10.5)
[2017-04-28 05:40] LABS: Mean Corpuscular Hemoglobin 27.7 pg (26-32)
[2017-04-28 06:01] LABS: ALBUMIN 2.8 g/dL (3.4-5.0); ALKALINE PHOSPHATASE 157 U/L (46-116); ANION GAP 8.9 MEQ/L (5-15); BLOOD UREA NITROGEN 7 mg/dL (9-20); CHLORIDE 104 mEq/L (98-107); Carbon Dioxide 33.1 mEq/L (21-32); Glucose 97 MG/DL (70-110); Potassium 3.9 mEq/L (3.5-5.1); SGOT/AST 28 U/L (15-37); SGPT/ALT 27 U/L (12-78); SODIUM 142 mEq/L (136-145); Total Protein 6.6 gm/dL (6.4-8.2)
[2017-04-28 06:08] LABS: INR 2.26 (0.8-3.0); PROTIME 25.7 SECONDS (9.95-12.35)
[2017-04-28] MEDS: Advair Hfa 230/21 Mcg COMMON CANISTER IH SCH ×2 (07:15→19:41)
[2017-04-28] MEDS: Lidoderm Patch 5% TOP SCH (07:51)
[2017-04-28] MEDS: Lexapro 10 MG PO SCH (10:54)
[2017-04-28] MEDS: Protonix 40MG Tablet PO SCH (10:54)
[2017-04-28] MEDS: Flonase NASAL NS SCH ×2 (10:55→21:50)
[2017-04-28] MEDS: Lopressor 25MG Tab PO SCH ×2 (10:55→21:46)
[2017-04-28] MEDS: Ditropan 5 MG PO SCH ×2 (10:55→21:47)
[2017-04-28] MEDS: SYNTHROID 50 MCG PO SCH (10:55)
[2017-04-28] MEDS: NORVASC 5 MG PO SCH (10:55)
[2017-04-28] MEDS: Colace 100 MG PO SCH ×2 (10:55→21:47)
[2017-04-28] MEDS: Coumadin 3 MG PO SCH (18:02)
[2017-04-28] MEDS: ZOCOR 20MG PO SCH (21:47)
[2017-04-29] MEDS: Advair Hfa 230/21 Mcg COMMON CANISTER IH SCH ×2 (07:22→18:50)
[2017-04-29] MEDS: PERCOCET TABLET 5/325MG PO PRN ×3 (09:09→21:19)
[2017-04-29] MEDS: Colace 100 MG PO SCH ×2 (09:12→21:19)
[2017-04-29] MEDS: Lexapro 10 MG PO SCH (09:12)
[2017-04-29] MEDS: Flonase NASAL NS SCH ×2 (09:12→21:18)
[2017-04-29] MEDS: SYNTHROID 50 MCG PO SCH (09:13)
[2017-04-29] MEDS: Ditropan 5 MG PO SCH ×2 (09:13→21:20)
[2017-04-29] MEDS: Lopressor 25MG Tab PO SCH ×2 (09:13→21:20)
[2017-04-29] MEDS: NORVASC 5 MG PO SCH (09:13)
[2017-04-29] MEDS: Protonix 40MG Tablet PO SCH (09:14)
[2017-04-29] MEDS: Lidoderm Patch 5% TOP SCH (09:14)
[2017-04-29] MEDS: Voltaren GEL TOP PRN ×3 (09:29→21:18)
[2017-04-29] MEDS: Coumadin 3 MG PO SCH (18:11)
[2017-04-29] MEDS: ZOCOR 20MG PO SCH (21:19)
[2017-04-30 07:01] LABS: INR 2.11 (0.8-3.0)
[2017-04-30 07:23] VITALS: BP 124/57; PULSE 56
[2017-04-30 07:41] VITALS: O2SAT 92
--- NOTE | 2017-04-30 08:08 | PCM.DCORD ---
- Discharge Discharge Date: 04/30/17 Disposition: HOME HEALTH SERVICE Condition: Fair Prescriptions: Continue Levothyroxine Sodium 50 Mcg [Synthroid 50 Mcg] 50 mcg PO DAILY #30 tablet Fluticasone/Salmeterol 230/21 [Advair Hfa 230/21 Mcg COMMON CANISTER*] 2 puff IH BIDRT #1 aer.w.adap Atorvastatin Calcium 40 mg PO HS #30 tablet Docusate Sodium 100 mg [Colace 100 MG] 100 mg PO BID #60 capsule Warfarin Sodium 1 mg [Coumadin 1 MG] 1 mg PO DAILY #30 tablet Warfarin Sodium 2.5 mg [Coumadin 2.5 MG] 2.5 mg PO DAILY #30 tablet Bisacodyl 10 mg [Dulcolax 10 MG SUPP] 10 mg PA QDP PRN #0 supp.rect PRN Reason: Constipation Fluticasone Propionate [Flonase NASAL] 0 gm NS Q12HT #0 bottle Escitalopram Oxalate [Lexapro] 20 mg PO DAILY #30 tablet Lidocaine HCl 5% Patch [Lidoderm Patch 5%] 2 patch TOP DAILY@0800 #60 patch Metoprolol Tartrate 25 mg [Lopressor 25MG Tab] 12.5 mg PO BID #30 tab Amlodipine Besylate 5 mg [Norvasc 5 mg] 5 mg PO DAILY #30 tablet Ondansetron [Ondansetron Odt] 4 mg PO Q8H PRN PRN #30 tab PRN Reason: Nausea Oxybutynin Chloride 5 mg PO Q12H #60 tablet Oxycodone/APAP 5 mg/325 mg [Percocet Tablet 5/325Mg] 1 tab PO Q4H PRN PRN #42 tablet PRN Reason: Pain PANTOPRAZOLE 40 mg Tablet [Protonix 40MG Tablet] 40 mg PO DAILY #30 tab Acetaminophen 325 mg [Tylenol 325 mg] 650 mg PO Q6H PRN PRN #0 tablet PRN Reason: Pain And/Or Fever Diclofenac Sodium Gel [Voltaren GEL] 2 gm TOP TID PRN PRN #100 gel..gm. PRN Reason: Pain Discontinued Warfarin Sodium 5 mg [Coumadin 5 MG] 7.5 mg NG UD Warfarin Sodium 5 mg [Coumadin 5 MG] 5 mg NG UD Vitamin A 25,000 unit NG DAILY Sodium Chloride [Saline Nose [place]] 45 ml NS Q8H Nutritional Supplement/Fiber [Promote with Fiber Liquid] 237 ml NG UD Multivitamin with Minerals [Multivitamins with Minerals] 1 each NG DAILY Magnesium Hydroxide 30 ml [Milk of Magnesia 30 ml] 30 ml NG Q12H PRN PRN PRN Reason: Constipation Metoprolol Tartrate 25 mg [Lopressor 25MG Tab] 12.5 mg NG Q12H Melatonin/Pyridoxine HCl (B6) [Melatonin 3 mg Tablet] 6 mg NG HS Lidocaine HCl 5% Patch [Lidoderm Patch 5%] 2 patch TOP DAILY Levothyroxine Sodium 50 Mcg [Synthroid 50 Mcg] 50 mcg NG DAILY Lansoprazole 30 mg NG DAILY Hydrocodone Bit/Acetaminophen [[place] 5-325 Tablet] 1 each NG Q6H Guaifenesin 400 mg NG Q4H Fluticasone Propionate [Flonase NASAL] 1 gm NS Q12H Escitalopram Oxalate 10 mg [Lexapro 10 MG] 20 mg NG DAILY Enoxaparin Sodium [Lovenox] 80 mg SQ Q12H Chlorhexidine Gluconate [Peridex] 118 ml MM Q12H Calcium Carbonate/Vitamin D2 [Oyster Shell Calcium-Vit D Tab] 1 each NG Q12H Budesonide 0.5 mg/2 ml [Pulmicort 0.5 mg/2 ml Respules] 0.5 mg IH Q12H Bisacodyl 10 mg [Dulcolax 10 MG SUPP] 10 mg [place] DAILY PRN PRN Reason: Constipation Ascorbic Acid 500 mg [Vitamin C 500 MG] 500 mg NG DAILY Amlodipine Besylate 5 mg [Norvasc 5 mg] 2.5 mg NG DAILY Albuterol 2.5 mg/3 ml Neb [Proventil 2.5 mg/3 ml Neb] 2.5 mg IH Q6H Zinc Sulfate 220 mg NG DAILY Additional Instructions: Home INR monitoring to start weekly next week Follow up with: KATELYN OROZCO MD [NON-STAFF PHY W/O PRIVILEGES] - 05/10/17 10:40 am JANELLE LEVY MD [Primary Care Provider] - 1 Week
[2017-04-30] MEDS: Lidoderm Patch 5% TOP SCH (09:12)
[2017-04-30] MEDS: Lexapro 10 MG PO SCH (09:12)
[2017-04-30] MEDS: Protonix 40MG Tablet PO SCH (09:12)
[2017-04-30] MEDS: Lopressor 25MG Tab PO SCH (09:13)
[2017-04-30] MEDS: NORVASC 5 MG PO SCH (09:13)
[2017-04-30] MEDS: SYNTHROID 50 MCG PO SCH (09:13)
[2017-04-30] MEDS: Flonase NASAL NS SCH (09:14)
[2017-04-30] MEDS: Colace 100 MG PO SCH (09:14)
[2017-04-30] MEDS: Ditropan 5 MG PO SCH (09:14)
[2017-04-30] MEDS: PERCOCET TABLET 5/325MG PO PRN (09:20)
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
== END 2017-04-30 11:00 | disposition home health service (06) | DRG 559 ==
LOC: MED SURG 15:45
PROVIDERS: ADMIT Family Medicine; ATTEND Family Medicine
DX: S22.49XD Multiple fractures of ribs, unspecified side, subsequent encounter for fracture with routine healing (principal); S82.209B Unspecified fracture of shaft of unspecified tibia, initial encounter for open fracture type I or II; S82.409 Unspecified fracture of shaft of unspecified fibula; E44.0 Moderate protein-calorie malnutrition; I25.810 Atherosclerosis of coronary artery bypass graft(s) without angina pectoris; N39.0 Urinary tract infection, site not specified; W22.8XXA Striking against or struck by other objects, initial encounter; Y93.89 Activity, other specified; Z95.2 Presence of prosthetic heart valve; R13.13 Dysphagia, pharyngeal phase; E78.5 Hyperlipidemia, unspecified; E03.9 Hypothyroidism, unspecified; I10 Essential (primary) hypertension; G47.30 Sleep apnea, unspecified; K21.9 Gastro-esophageal reflux disease without esophagitis; J45.909 Unspecified asthma, uncomplicated; I48.91 Unspecified atrial fibrillation; D64.9 Anemia, unspecified; T14.8 Other injury of unspecified body region; R41.0 Disorientation, unspecified; K59.00 Constipation, unspecified; Z79.01 Long term (current) use of anticoagulants; Z79.899 Other long term (current) drug therapy; S31.113A Laceration without foreign body of abdominal wall, right lower quadrant without penetration into peritoneal cavity, initial encounter; S91.001A Unspecified open wound, right ankle, initial encounter; V49.60XD Unspecified car occupant injured in collision with unspecified motor vehicles in traffic accident, subsequent encounter
CPT/HCPCS: 36415; 71100; 73590; 80048; 80053; 85014; 85018; 85025; 85610; 94002; 94003; 94640; 94760; 94761; A6457; J1642; Q0162; 97110-GP; A9270-GY

== ENCOUNTER 2017-11-09 12:32 | Inpatient (IN) | payer MEDICARE, BC ==
[2017-11-09] MEDS ORDERED: LIPITOR 40MG PO SCH (22:30)
[2017-11-09] MEDS ORDERED: ZOCOR 20MG ONE (22:56)
[2017-11-09] MEDS: ENOXAPARIN SODIUM SQ SCH (23:27)
[2017-11-09] MEDS: ZOCOR 20MG PO SCH (23:29)
[2017-11-09] MEDS: PERCOCET TABLET 5/325MG PO PRN (23:29)
[2017-11-10 06:34] LABS: INR 1.5 (0.8-3.0)
[2017-11-10] MEDS: Advair Hfa 230/21 Mcg COMMON CANISTER IH SCH ×2 (08:25→19:36)
[2017-11-10] MEDS: PERCOCET TABLET 5/325MG PO PRN ×3 (09:23→21:22)
[2017-11-10] MEDS: Lexapro 10 MG PO SCH (09:38)
[2017-11-10] MEDS: Calcium 500MG W/Vit D Tablet PO SCH ×2 (09:38→21:22)
[2017-11-10] MEDS: ENOXAPARIN SODIUM SQ SCH ×2 (09:39→21:21)
[2017-11-10] MEDS: Protonix 40MG Tablet PO SCH (09:39)
[2017-11-10] MEDS: NORVASC 5 MG PO SCH (09:39)
[2017-11-10] MEDS: SYNTHROID 50 MCG PO SCH (09:39)
[2017-11-10] MEDS: Flonase NASAL NS SCH (09:40)
[2017-11-10] MEDS ORDERED: [UNRECOGNIZED DRUG - OTHER] PO SCH (10:00)
[2017-11-10] MEDS ORDERED: NON-FORMULARY ITEM (Escitalopram Oxalate [Escitalopram Oxalate] 20 MG) PO SCH (10:00)
[2017-11-10] MEDS ORDERED: NON-FORMULARY ITEM (Omeprazole [Omeprazole] 40 MG) PO SCH (10:00)
[2017-11-10] MEDS ORDERED: CALCIUM CARBONATE PO SCH (10:00)
[2017-11-10] MEDS ORDERED: Aplisol ID SCH (10:00)
[2017-11-10] MEDS ORDERED: VITAMIN D3 PO SCH (10:00)
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
[2017-11-10] MEDS ORDERED: Coumadin 2.5 MG PO SCH (18:00)
[2017-11-10 19:22] LABS: Hematocrit 27.6 % (35-47); Hemoglobin 8.3 gm/dl (12.0-16.0); Mean Cell Volume 91.7 fl (78-100); Mean Corpuscular Hgb Concent. 30.1 g/dl (32-36); Mean Platelet Volume 9.8 fl (6-9.5); Platelet Count 231 K/mm3 (150-450); Red Blood Count 3.01 M/mm3 (4.1-5.4); Red Cell Distribution Width 15.5 % (11.5-14.0); White Blood Count 6.9 K/mm3 (4.0-10.5)
[2017-11-10 19:27] LABS: Mean Corpuscular Hemoglobin 27.5 pg (26-32)
[2017-11-10 19:52] LABS: ALBUMIN 3.1 g/dL (3.4-5.0); ALKALINE PHOSPHATASE 125 U/L (46-116); ANION GAP 12.2 MEQ/L (5-15); BLOOD UREA NITROGEN 10 mg/dL (9-20); CHLORIDE 103 mEq/L (98-107); Calcium 8.9 mg/dL (8.5-10.1); Carbon Dioxide 28.1 mEq/L (21-32); Creatinine 1 0.93 mg/dl (0.55-1.30); EST GLOMERULAR FILTRATION RATE > 60 ML/MIN; Glucose 99 MG/DL (70-110); Potassium 3.8 mEq/L (3.5-5.1); SGOT/AST 32 U/L (15-37); SGPT/ALT 25 U/L (12-78); SODIUM 140 mEq/L (136-145); Total Protein 6.4 gm/dL (6.4-8.2)
[2017-11-10 19:56] LABS: Appearance CLEAR (CLEAR); Bilirubin NEGATIVE (NEGATIVE); Glucose NEGATIVE (NEGATIVE); Ketones NEGATIVE (NEGATIVE); Leukocyte Esterase TRACE (NEGATIVE); Nitrite NEGATIVE (NEGATIVE); Protein,Urine Dip NEGATIVE (Negative); Urobilinogen NORMAL mg/dL (0-1)
[2017-11-10 20:03] LABS: Bacteria RARE /HPF (NEGATIVE); Epithelial Cells RARE /HPF (FEW)
[2017-11-10] MEDS: ZOCOR 20MG PO SCH (21:22)
[2017-11-10] MEDS ORDERED: NON-FORMULARY ITEM (Tolterodine Tartrate [Tolterodine Tartrate Er] 4 MG) PO SCH (22:00)
[2017-11-10] MEDS ORDERED: Ditropan XL 5 MG PO SCH (22:00)
[2017-11-10] MEDS ORDERED: MORPHINE SULFATE 4 MG INJ IM ONE (22:06)
[2017-11-11] MEDS: PERCOCET TABLET 5/325MG PO PRN ×2 (05:29→18:41)
[2017-11-11 06:17] LABS: Hematocrit 26.8 % (35-47); Mean Cell Volume 91.8 fl (78-100); Mean Corpuscular Hgb Concent. 29.9 g/dl (32-36); Mean Platelet Volume 10.5 fl (6-9.5); Platelet Count 227 K/mm3 (150-450); Red Blood Count 2.92 M/mm3 (4.1-5.4); Red Cell Distribution Width 15.7 % (11.5-14.0); White Blood Count 5.7 K/mm3 (4.0-10.5)
[2017-11-11 06:25] LABS: Mean Corpuscular Hemoglobin 27.3 pg (26-32)
[2017-11-11 06:27] LABS: INR 1.46 (0.8-3.0)
[2017-11-11] MEDS: Advair Hfa 230/21 Mcg COMMON CANISTER IH SCH ×2 (06:39→20:19)
--- NOTE | 2017-11-11 08:35 | XRAY ---
Indication: Mental status change. Multiple contiguous axial images obtained through the head without contrast. Comparison: None Several images slightly degraded by motion artifact. Age-appropriate global atrophy and moderate periventricular degenerative micro-ischemia bilaterally. No acute intracranial hemorrhage, abnormal extra-axial fluid collection, or mass effect. Fourth ventricle is midline without hydrocephalus. Bony calvarium intact. Visualized paranasal sinuses and mastoid air cells are clear. Impression: Nonacute senile brain. CT DI 62.13
--- NOTE | 2017-11-11 08:35 | XRAY ---
Indication: Mental status change. Comparison: None Single AP portable chest demonstrates large right base masslike opacity with small effusion. Left lung clear. Heart is upper limits normal limits for AP portable technique with previous cardiac valvular replacement surgery. Bony thorax intact with mild osteopenia, mild degenerative changes, and healing right clavicle fracture. Impression: Large right lung base masslike opacity with small effusion. CT chest may yield further information.
--- NOTE | 2017-11-11 09:38 | PCM.NOTE ---
Date and Time: 11/11/17931 Subjective Assessment: she became acutely disoriented last night, confused, unable to articulate words , answering questions inappropriately but without any other focal deficits or vital sign changes. With her on the anticogulants concern for possible hemorrhagic stroke and thus ct head noncontrast was done and unremarkable with her ams cxr, cbc, cmp, ua were done with anemia and right sided mass like opacity that appears to be likely her hiatle hernia but are getting old films for comparison today she was only complaining of severe right foot pain prior to the decompensation in mental status and thus the right herrera wrap was unwrapped and the soft roll where the anterior vent in the cast is was openned with scissors. to visualized the area she stated all the pain was at anterior in the ankle. the structural aspect of the cast was not altered during the exam the skin under the anteriro aspect of the ankle was warm with no drainage noted in the cast no anterior bruising or skin breakdown good cap refill moving toes and warm toes. the herrera wrap was used to wrap the cast again without changing any aspect of the structural part of the cast. She then began having severe headache on the right side. again without focal neuro defictis. Her pain medication was increased from 5mg oxycodoen q8h to 10mg q4h prn and she was given an IM dose of morphine this caused her to vomit and she was given phenergan IM which helped her sleep. She is now up this am with some confusion but overall much improved she denies headache and currently denies pain in her foot Objective Exam General Appearance: no apparent distress Neurologic Exam: alert, cooperative Skin Exam: warm, dry, pale Ears, Nose, Throat Exam: moist mucous membranes Neck Exam: non-tender, supple Cardiovascular Exam: regular rate/rhythm, murmur Gastrointestinal/Abdomen Exam: soft, normal bowel sounds, No tenderness, No distention Extremity Exam: other (right foot in cast with ability to move toes, warm with good cap refill) OBJECTIVE DATA Vital Signs: Vital Signs - 24 hr Temp Pulse Resp BP Pulse Ox 11/11/17 07:30 97.7 F 57 L 16 104/52 96 11/11/17 06:41 58 L 16 100 11/10/17 20:00 98.4 F 65 18 135/60 97 11/10/17 19:37 63 18 96 Oxygen-Last 24 hours O2 Percentage 3 Liters = 32% O2 Percentage 2 Liters = 28% Pain Assessment - Last Documented Pain Intensity 6 Pain Scale Used 0-10 Pain Scale Intake and Output: Intake & Output 11/08/17 11/09/17 11/10/17 11/11/17 11:59 11:59 11:59 11:59 Intake Total 340 1160 Output Total 800 825 Balance -460 335 Weight 68.5 kg 68.5 kg Lab Results: Lab Results-Last 24 Hours 11/10/17 11/10/17 11/10/17 Range/Units 19:15 19:20 19:20 WBC 6.9 (4.0-10.5) K/mm3 RBC 3.01 L (4.1-5.4) M/mm3 Hgb 8.3 L (12.0-16.0) gm/dl Hct 27.6 L (35-47) % MCV 91.7 (78-100) fl MCH 27.5 (26-32) pg MCHC 30.1 L (32-36) g/dl RDW 15.5 H (11.5-14.0) % Plt Count 231 (150-450) K/mm3 MPV 9.8 H (6-9.5) fl INR (0.8-3.0) Sodium 140 (136-145) mEq/L Potassium 3.8 (3.5-5.1) mEq/L Chloride 103 (98-107) mEq/L Carbon Dioxide 28.1 (21-32) mEq/L Anion Gap 12.2 (5-15) MEQ/L BUN 10 (9-20) mg/dL Creatinine 0.93 (0.55-1.30) mg/dl Estimated GFR > 60 ML/MIN Glucose 99 (70-110) MG/DL Calcium 8.9 (8.5-10.1) mg/dL Total Bilirubin 0.30 (0.2-1.0) mg/dL AST 32 (15-37) U/L ALT 25 (12-78) U/L Alkaline Phosphatase 125 H (46-116) U/L Serum Total Protein 6.4 (6.4-8.2) gm/dL Albumin 3.1 L (3.4-5.0) g/dL Ur Collection Type VOID Urine Color YELLOW (YELLOW) Urine Appearance CLEAR (CLEAR) Urine pH 8.0 (5-6) Ur Specific Jensen 1.000 (1.005-1.025) Urine Protein NEGATIVE (Negative) Urine Ketones NEGATIVE (NEGATIVE) Urine Blood 5-10 (0-5) Santos/ul Urine Nitrite NEGATIVE (NEGATIVE) Urine Bilirubin NEGATIVE (NEGATIVE) Urine Urobilinogen NORMAL (0-1) mg/dL Ur Leukocyte Esterase TRACE (NEGATIVE) Urine Microscopic RBC 0-2 (0-2) /HPF Urine Microscopic WBC 2-5 (0-5) /HPF Ur Epithelial Cells RARE (FEW) /HPF Urine Bacteria RARE (NEGATIVE) /HPF Urine Glucose NEGATIVE (NEGATIVE) mg/dL Specimen Received 11/10/17191411/11/17 11/11/17 Range/Units 05:25 05:25 WBC 5.7 (4.0-10.5) K/mm3 RBC 2.92 L (4.1-5.4) M/mm3 Hgb 8.0 L (12.0-16.0) gm/dl Hct 26.8 L (35-47) % MCV 91.8 (78-100) fl MCH 27.3 (26-32) pg MCHC 29.9 L (32-36) g/dl RDW 15.7 H (11.5-14.0) % Plt Count 227 (150-450) K/mm3 MPV 10.5 H (6-9.5) fl INR 1.46 (0.8-3.0) Sodium (136-145) mEq/L Potassium (3.5-5.1) mEq/L Chloride (98-107) mEq/L Carbon Dioxide (21-32) mEq/L Anion Gap (5-15) MEQ/L BUN (9-20) mg/dL Creatinine (0.55-1.30) mg/dl Estimated GFR ML/MIN Glucose (70-110) MG/DL Calcium (8.5-10.1) mg/dL Total Bilirubin (0.2-1.0) mg/dL AST (15-37) U/L ALT (12-78) U/L Alkaline Phosphatase (46-116) U/L Serum Total Protein (6.4-8.2) gm/dL Albumin (3.4-5.0) g/dL Ur Collection Type Urine Color (YELLOW) Urine Appearance (CLEAR) Urine pH (5-6) Ur Specific Jensen (1.005-1.025) Urine Protein (Negative) Urine Ketones (NEGATIVE) Urine Blood (0-5) Santos/ul Urine Nitrite (NEGATIVE) Urine Bilirubin (NEGATIVE) Urine Urobilinogen (0-1) mg/dL Ur Leukocyte Esterase (NEGATIVE) Urine Microscopic RBC (0-2) /HPF Urine Microscopic WBC (0-5) /HPF Ur Epithelial Cells (FEW) /HPF Urine Bacteria (NEGATIVE) /HPF Urine Glucose (NEGATIVE) mg/dL Specimen Received Radiology Exams: Radiology Procedures Category Date Time Status CHEST 1 VIEW (PORTABLE) Stat Exams 11/10/17 18:21 Completed HEAD WITHOUT CONTRAST [CT] Stat Exams 11/10/17 18:21 Completed Assessment/Plan (1) S/P surgical manipulation of ankle joint Current Visit: Yes Status: Acute Code(s): Z98.890 - OTHER SPECIFIED POSTPROCEDURAL STATES (2) History of mitral valve replacement Current Visit: Yes Status: Chronic Code(s): Z95.2 - PRESENCE OF PROSTHETIC HEART VALVE (3) Hypothyroidism Current Visit: Yes Status: Chronic Code(s): E03.9 - HYPOTHYROIDISM, UNSPECIFIED (4) Hypertension Current Visit: Yes Status: Chronic Code(s): I10 - ESSENTIAL (PRIMARY) HYPERTENSION (5) GERD (gastroesophageal reflux disease) Current Visit: Yes Status: Chronic Code(s): K21.9 - GASTRO-ESOPHAGEAL REFLUX DISEASE WITHOUT ESOPHAGITIS (6) Anemia Current Visit: Yes Status: Acute Code(s): D64.9 - ANEMIA, UNSPECIFIED (7) Acute confusion Current Visit: Yes Status: Acute Assessment & Plan: see subjective for discussion improving now on increased pain control Code(s): R41.0 - DISORIENTATION, UNSPECIFIED (8) Overactive bladder Current Visit: Yes Status: Acute Assessment & Plan: she is going to bring home med as formulary substite may have been causing increased side effects Code(s): N32.81 - OVERACTIVE BLADDER (9) Chest x-ray abnormality Current Visit: Yes Status: Acute Assessment & Plan: SHe has had large hiatle hernia on the right in the past getting old films to confirm this is a chronic finding and not new on the right. Code(s): R93.8 - ABNORMAL FINDINGS ON DIAGNOSTIC IMAGING OF BODY STRUCTURES
[2017-11-11] MEDS: SYNTHROID 50 MCG PO SCH (09:43)
[2017-11-11] MEDS: Lexapro 10 MG PO SCH (09:43)
[2017-11-11] MEDS: ENOXAPARIN SODIUM SQ SCH ×2 (09:43→22:41)
[2017-11-11] MEDS: NORVASC 5 MG PO SCH (09:43)
[2017-11-11] MEDS: Flonase NASAL NS SCH (09:43)
[2017-11-11] MEDS: Protonix 40MG Tablet PO SCH (09:43)
[2017-11-11] MEDS: Calcium 500MG W/Vit D Tablet PO SCH ×2 (09:43→22:41)
[2017-11-11] MEDS: Coumadin 5 MG PO SCH (18:23)
[2017-11-11] MEDS: ZOCOR 20MG PO SCH (22:41)
[2017-11-12] MEDS: PERCOCET TABLET 5/325MG PO PRN ×3 (05:09→20:23)
[2017-11-12 06:39] LABS: INR 1.4 (0.8-3.0)
[2017-11-12] MEDS: Advair Hfa 230/21 Mcg COMMON CANISTER IH SCH ×2 (06:40→17:04)
[2017-11-12] MEDS ORDERED: Coumadin 2.5 MG PO ONE (08:40)
[2017-11-12] MEDS: Lexapro 10 MG PO SCH (10:54)
[2017-11-12] MEDS: NORVASC 5 MG PO SCH (10:54)
[2017-11-12] MEDS: Flonase NASAL NS SCH (10:55)
[2017-11-12] MEDS: Calcium 500MG W/Vit D Tablet PO SCH ×2 (10:55→21:42)
[2017-11-12] MEDS: ENOXAPARIN SODIUM SQ SCH ×2 (10:55→21:49)
[2017-11-12] MEDS: SYNTHROID 50 MCG PO SCH (10:55)
[2017-11-12] MEDS: Protonix 40MG Tablet PO SCH (10:55)
[2017-11-12] MEDS: Coumadin 5 MG*** 5 MG, Coumadin 2.5 MG*** 2.5 MG PO SCH ×2 (18:23)
[2017-11-12] MEDS ORDERED: Dulcolax 10 MG SUPP PR PRN (18:59)
[2017-11-12] MEDS: ZOCOR 20MG PO SCH (21:42)
[2017-11-12] MEDS: PATIENT OWN MEDICATION PO SCH (21:43)
[2017-11-12] MEDS: Miralax Powder 17GM PACKET PO SCH (21:45)
[2017-11-13 06:31] LABS: INR 1.73 (0.8-3.0)
[2017-11-13] MEDS: Advair Hfa 230/21 Mcg COMMON CANISTER IH SCH ×2 (09:47→20:53)
[2017-11-13] MEDS: Lexapro 10 MG PO SCH (09:59)
[2017-11-13] MEDS: Protonix 40MG Tablet PO SCH (09:59)
[2017-11-13] MEDS: NORVASC 5 MG PO SCH (09:59)
[2017-11-13] MEDS: Miralax Powder 17GM PACKET PO SCH ×2 (09:59→21:18)
[2017-11-13] MEDS: SYNTHROID 50 MCG PO SCH (09:59)
[2017-11-13] MEDS: Calcium 500MG W/Vit D Tablet PO SCH ×2 (09:59→21:18)
[2017-11-13] MEDS: Flonase NASAL NS SCH (09:59)
[2017-11-13] MEDS ORDERED: Miralax Powder 17GM PACKET PO SCH (10:00)
[2017-11-13] MEDS: ENOXAPARIN SODIUM SQ SCH ×2 (10:03→21:20)
[2017-11-13] MEDS: PERCOCET TABLET 5/325MG PO PRN ×2 (10:43→17:49)
[2017-11-13] MEDS ORDERED: Coumadin 5 MG PO ONE (11:37)
[2017-11-13] MEDS: Coumadin 5 MG PO SCH (17:50)
[2017-11-13] MEDS: PATIENT OWN MEDICATION PO SCH (21:18)
[2017-11-13] MEDS: ZOCOR 20MG PO SCH (21:19)
[2017-11-14 06:10] LABS: INR 2.48 (0.8-3.0)
[2017-11-14] MEDS: PERCOCET TABLET 5/325MG PO PRN ×3 (06:47→22:21)
[2017-11-14] MEDS: Advair Hfa 230/21 Mcg COMMON CANISTER IH SCH ×2 (07:26→19:51)
[2017-11-14] MEDS: Miralax Powder 17GM PACKET PO SCH ×2 (09:23→22:21)
[2017-11-14] MEDS: Flonase NASAL NS SCH (09:24)
[2017-11-14] MEDS: Calcium 500MG W/Vit D Tablet PO SCH ×2 (09:24→22:21)
[2017-11-14] MEDS: Lexapro 10 MG PO SCH (09:26)
[2017-11-14] MEDS: SYNTHROID 50 MCG PO SCH (09:27)
[2017-11-14] MEDS: Protonix 40MG Tablet PO SCH (09:27)
[2017-11-14] MEDS: NORVASC 5 MG PO SCH (09:27)
[2017-11-14] MEDS: ENOXAPARIN SODIUM SQ SCH ×2 (09:29→22:21)
[2017-11-14] MEDS: Coumadin 5 MG*** 5 MG, Coumadin 2.5 MG*** 2.5 MG PO SCH ×2 (18:39)
[2017-11-14] MEDS: ZOCOR 20MG PO SCH (22:21)
[2017-11-14] MEDS: PATIENT OWN MEDICATION PO SCH (22:22)
[2017-11-15] MEDS: PERCOCET TABLET 5/325MG PO PRN ×3 (05:41→10:32)
[2017-11-15 06:48] LABS: INR 3.98 (0.8-3.0)
[2017-11-15] MEDS: Advair Hfa 230/21 Mcg COMMON CANISTER IH SCH ×2 (07:40→20:31)
[2017-11-15] MEDS: Flonase NASAL NS SCH (09:41)
[2017-11-15] MEDS: Calcium 500MG W/Vit D Tablet PO SCH ×2 (09:42→23:55)
[2017-11-15] MEDS: Lexapro 10 MG PO SCH (09:42)
[2017-11-15] MEDS: Protonix 40MG Tablet PO SCH (09:42)
[2017-11-15] MEDS: NORVASC 5 MG PO SCH (09:42)
[2017-11-15] MEDS: SYNTHROID 50 MCG PO SCH (09:43)
[2017-11-15] MEDS: Miralax Powder 17GM PACKET PO SCH ×2 (09:43→23:55)
[2017-11-15] MEDS: ENOXAPARIN SODIUM SQ SCH (10:18)
[2017-11-15] MEDS: Phenergan 25 MG INJ IM PRN ×2 (12:53→17:45)
[2017-11-15] MEDS: OXYCODONE-ACETAMINOPHEN 10-325 PO PRN (13:17)
[2017-11-15] MEDS ORDERED: Coumadin 2.5 MG PO SCH (18:00)
[2017-11-15] MEDS: ZOCOR 20MG PO SCH (23:55)
[2017-11-15] MEDS: PATIENT OWN MEDICATION PO SCH (23:56)
[2017-11-16 06:13] LABS: INR 4.46 (0.8-3.0)
[2017-11-16] MEDS: Miralax Powder 17GM PACKET PO SCH ×2 (09:27→21:04)
[2017-11-16] MEDS: Protonix 40MG Tablet PO SCH (09:27)
[2017-11-16] MEDS: Calcium 500MG W/Vit D Tablet PO SCH ×2 (09:28→21:02)
[2017-11-16] MEDS: SYNTHROID 50 MCG PO SCH (09:28)
[2017-11-16] MEDS: NORVASC 5 MG PO SCH (09:28)
[2017-11-16] MEDS: Lexapro 10 MG PO SCH (09:28)
[2017-11-16] MEDS: Flonase NASAL NS SCH (10:03)
[2017-11-16] MEDS: Advair Hfa 230/21 Mcg COMMON CANISTER IH SCH (10:44)
[2017-11-16] MEDS: OXYCODONE-ACETAMINOPHEN 10-325 PO PRN ×2 (11:03→18:46)
[2017-11-16] MEDS: ZOFRAN ODT 4 MG PO PRN (11:03)
[2017-11-16] MEDS: ZOCOR 20MG PO SCH (21:02)
[2017-11-16] MEDS: PATIENT OWN MEDICATION PO SCH (21:03)
[2017-11-17 06:50] LABS: INR 4.89 (0.8-3.0)
[2017-11-17] MEDS: Advair Hfa 230/21 Mcg COMMON CANISTER IH SCH ×3 (08:02→22:48)
[2017-11-17] MEDS ORDERED: Miralax Powder 17GM PACKET PO PRN (09:34)
[2017-11-17] MEDS: Flonase NASAL NS SCH (09:47)
[2017-11-17] MEDS: NORVASC 5 MG PO SCH (09:47)
[2017-11-17] MEDS: Lexapro 10 MG PO SCH (09:47)
[2017-11-17] MEDS: SYNTHROID 50 MCG PO SCH (09:47)
[2017-11-17] MEDS: Protonix 40MG Tablet PO SCH (09:47)
[2017-11-17] MEDS: Calcium 500MG W/Vit D Tablet PO SCH ×2 (09:47→22:27)
[2017-11-17] MEDS: ZOFRAN ODT 4 MG PO PRN (11:23)
[2017-11-17] MEDS: OXYCODONE-ACETAMINOPHEN 10-325 PO PRN ×2 (11:23→19:45)
[2017-11-17] MEDS: Phenergan 25 MG INJ IM PRN (19:45)
[2017-11-17] MEDS: PATIENT OWN MEDICATION PO SCH (22:27)
[2017-11-17] MEDS: ZOCOR 20MG PO SCH (22:27)
[2017-11-18] MEDS: OXYCODONE-ACETAMINOPHEN 10-325 PO PRN ×4 (00:22→21:42)
[2017-11-18 06:19] LABS: INR 3.54 (0.8-3.0)
[2017-11-18] MEDS: Protonix 40MG Tablet PO SCH (10:41)
[2017-11-18] MEDS: SYNTHROID 50 MCG PO SCH (10:41)
[2017-11-18] MEDS: NORVASC 5 MG PO SCH (10:41)
[2017-11-18] MEDS: Lexapro 10 MG PO SCH (10:41)
[2017-11-18] MEDS: Flonase NASAL NS SCH (10:41)
[2017-11-18] MEDS: Calcium 500MG W/Vit D Tablet PO SCH ×2 (10:41→21:42)
[2017-11-18] MEDS: Advair Hfa 230/21 Mcg COMMON CANISTER IH SCH ×2 (11:23→20:05)
[2017-11-18] MEDS: ZOFRAN ODT 4 MG PO PRN ×2 (15:19→21:43)
[2017-11-18] MEDS: Coumadin 5 MG PO SCH (17:14)
[2017-11-18] MEDS: PATIENT OWN MEDICATION PO SCH (21:39)
[2017-11-18] MEDS: ZOCOR 20MG PO SCH (21:41)
[2017-11-19] MEDS: OXYCODONE-ACETAMINOPHEN 10-325 PO PRN ×2 (09:48→16:21)
[2017-11-19] MEDS: Calcium 500MG W/Vit D Tablet PO SCH (09:49)
[2017-11-19] MEDS: Flonase NASAL NS SCH (09:49)
[2017-11-19] MEDS: SYNTHROID 50 MCG PO SCH (09:49)
[2017-11-19] MEDS: NORVASC 5 MG PO SCH (09:49)
[2017-11-19] MEDS: Lexapro 10 MG PO SCH (09:49)
[2017-11-19] MEDS ORDERED: PATIENT OWN MEDICATION PO SCH (10:00)
[2017-11-19] MEDS: Advair Hfa 230/21 Mcg COMMON CANISTER IH SCH ×2 (10:55→23:42)
[2017-11-19] MEDS: ZOFRAN ODT 4 MG PO PRN ×2 (12:10→16:54)
[2017-11-19] MEDS ORDERED: ZOFRAN ODT 4 MG PO PRN (16:54)
[2017-11-19] MEDS: Coumadin 5 MG PO SCH (17:21)
[2017-11-19] MEDS ORDERED: Protonix 40MG Tablet PO SCH (18:00)
--- NOTE | 2017-11-19 18:03 | PCM.NOTE ---
Date and Time: 11/19/171757 Subjective Assessment: she has apparently been having intermittent right sided lower chest/upper abdomen pain on and off but today has been having it much more severe and not able to get comfortable she has taken her pain medicine every 4 hours and it is not helping much has tried heat and ice and no relief. It hurts to cough move or swallow at times. SHe is nauseated with dry heaves. Nursing reports a normal bowel movement yesterday. Objective Exam General Appearance: thin, other (Difficulty hearing initially sleeping but after waking up she is grabbing her right side and rubbing it and rocking in bed. she is chronically having pallor no jaundice.) Neurologic Exam: alert, cooperative Skin Exam: warm, dry Neck Exam: normal inspection, non-tender, supple Respiratory Exam: normal breath sounds, lungs clear, other (she has difficult time describing where the pain is there is no point tendenress palpable no real flank tendneress no costochondral tenderness.), No crackles/rales, No rhonchi, No wheezing Cardiovascular Exam: regular rate/rhythm, normal heart sounds Gastrointestinal/Abdomen Exam: soft, No normal bowel sounds (hypoactive bowel sounds), No tenderness, No distention, No mass, No guarding, No rebound Extremity Exam: other (cast on lower extremitey with good preipheral perfusion) OBJECTIVE DATA Vital Signs: Vital Signs - 24 hr Temp Pulse Resp BP Pulse Ox 11/19/17 11:18 98.9 F 90 18 154/67 90 L 11/19/17 10:00 85 16 93 L 11/19/17 07:14 98 F 70 18 128/67 96 11/18/17 20:15 98.5 F 73 15 120/58 93 L 11/18/17 20:06 74 16 91 L Pain Assessment - Last Documented Pain Intensity 6 Pain Scale Used 0-10 Pain Scale Intake and Output: Intake & Output 11/17/17 11/18/17 11/19/17 11/20/17 11:59 11:59 11:59 11:59 Intake Total 600 100 340 300 Output Total 600 500 Balance 0 100 340 -200 Weight 65.5 kg 66.5 kg 67 kg Radiology Exams: Radiology Procedures Category Date Time Status CHEST WITHOUT CONTRAST [CT] Routine Exams 11/19/17 17:43 Ordered Assessment/Plan (1) Chest pain Current Visit: Yes Status: Acute Assessment & Plan: right sided but very severe more lateral ? possibilty the hiatle hernia is causing more difficulty vs new rib anormality with the previous mulitple fractures will check CT With the severe pain and nausea check cmp, lipase, cbc, ua add protonix now and ordered daily Code(s): R07.9 - CHEST PAIN, UNSPECIFIED (2) S/P surgical manipulation of ankle joint Current Visit: Yes Status: Acute Code(s): Z98.890 - OTHER SPECIFIED POSTPROCEDURAL STATES (3) History of mitral valve replacement Current Visit: Yes Status: Chronic Code(s): Z95.2 - PRESENCE OF PROSTHETIC HEART VALVE (4) Hypothyroidism Current Visit: Yes Status: Chronic Code(s): E03.9 - HYPOTHYROIDISM, UNSPECIFIED (5) Hypertension Current Visit: Yes Status: Chronic Code(s): I10 - ESSENTIAL (PRIMARY) HYPERTENSION (6) GERD (gastroesophageal reflux disease) Current Visit: Yes Status: Chronic Code(s): K21.9 - GASTRO-ESOPHAGEAL REFLUX DISEASE WITHOUT ESOPHAGITIS (7) Anemia Current Visit: Yes Status: Acute Code(s): D64.9 - ANEMIA, UNSPECIFIED (8) Acute confusion Current Visit: Yes Status: Acute Code(s): R41.0 - DISORIENTATION, UNSPECIFIED (9) Overactive bladder Current Visit: Yes Status: Acute Code(s): N32.81 - OVERACTIVE BLADDER (10) Chest x-ray abnormality Current Visit: Yes Status: Acute Assessment & Plan: CT from [facility] from several months ago shows large right sided hiatle hernia with compressive atelectasis Code(s): R93.8 - ABNORMAL FINDINGS ON DIAGNOSTIC IMAGING OF BODY STRUCTURES
[2017-11-19] MEDS ORDERED: Protonix 40MG Tablet ONE (18:45)
[2017-11-19] MEDS: Phenergan 25 MG INJ IM PRN (18:52)
[2017-11-19 18:53] LABS: BASOPHIL % 0.2 % (0.0-0.4); Basophil (Absolute #) 0.02 (0-0.4); Eosinophil % 0.1 % (0.00-5.0); Eosinophil (Absolute #) 0.01 (0-0.5); Granulocyte Absolute (ANC) 11.09 (1.4-6.9); Granulocytes % 87.2 % (36.0-66.0); Hematocrit 32.5 % (35-47); Hemoglobin 9.9 gm/dl (12.0-16.0); Lymphocyte (Absolute #) 0.76 (1.0-4.6); Mean Corpuscular Hemoglobin 27.4 pg (26-32); Mean Corpuscular Hgb Concent. 30.5 g/dl (32-36); Mean Platelet Volume 9.7 fl (6-9.5); Monocyte (Absolute #) 0.82 (0.0-1.3); Monocytes % 6.5 % (0.0-12.0); Platelet Count 351 K/mm3 (150-450); Red Blood Count 3.61 M/mm3 (4.1-5.4); Red Cell Distribution Width 15.6 % (11.5-14.0); White Blood Count 12.7 K/mm3 (4.0-10.5)
[2017-11-19 19:18] LABS: INR 4.74 (0.8-3.0)
[2017-11-19 19:27] LABS: ALBUMIN 3.5 g/dL (3.4-5.0); ALKALINE PHOSPHATASE 147 U/L (46-116); ANION GAP 19.9 MEQ/L (5-15); BLOOD UREA NITROGEN 21 mg/dL (9-20); CHLORIDE 101 mEq/L (98-107); Calcium 9.8 mg/dL (8.5-10.1); Carbon Dioxide 24.9 mEq/L (21-32); Creatinine 1 0.93 mg/dl (0.55-1.30); EST GLOMERULAR FILTRATION RATE > 60 ML/MIN; Glucose 112 MG/DL (70-110); LIPASE 53 U/L (73-393); Potassium 3.7 mEq/L (3.5-5.1); SGOT/AST 16 U/L (15-37); SGPT/ALT 18 U/L (12-78); SODIUM 142 mEq/L (136-145); Total Protein 7.7 gm/dL (6.4-8.2)
[2017-11-19] MEDS ORDERED: Ativan 2 MG/1 ML VIAL IV PRN (20:49)
[2017-11-19] MEDS ORDERED: Zofran 4 MG/2 ML VIAL IV PRN (20:51)
[2017-11-19] MEDS ORDERED: XYLOCAINE 2% Uro-Jet TOP ONE (20:53)
[2017-11-19] MEDS ORDERED: Dextrose 5% -0.45 NaCl 1000 ML 1,000 ML IV SCH (21:00)
[2017-11-19] MEDS ORDERED: Ativan 2 MG/1 ML VIAL ONE (21:51)
--- NOTE | 2017-11-19 22:26 | XRAY ---
Indication: Severe right-sided chest pain. Nausea and vomiting. Multiple contiguous axial images obtained through the chest without contrast as ordered. Comparison: None There is hiatal hernia with entire intrathoracic food filled stomach predominantly in the right lung base with adjacent compressive atelectasis. Medial left base demonstrates lesser degree of atelectasis with patchy airspace opacities. No consolidation or effusion. Right lower lobe calcified granulomas. Intrathoracic stomach also effaces the heart. Heart is not enlarged and demonstrates previous cardiac valvular replacement surgery. No pericardial effusion. Aorta is mildly arteriosclerotic without aneurysmal dilatation. Several superior mediastinal and mediastinal calcified nodes. Mid to proximal esophagus is mildly fluid distended presumed from reflux. Bony thorax intact with mild degenerative changes throughout the spine. Healing right clavicle shaft fracture. Limited upper abdomen demonstrates hepatic/splenic calcified granulomas. Impression: 1. Hiatal hernia with food filled intrathoracic stomach and subsequent bibasilar compressive atelectasis. Additional mass effect on the heart. Intrathoracic stomach corresponds to the recent chest radiograph finding. Proximal esophagus is mildly fluid distended presumed from reflux. 2. Medial left lower lobe patchy airspace disease. Rule out aspiration. 3. Evidence for old granulomatous disease. Comment: Preliminary interpretation was made by [facility]. No critical discrepancy. CTDI 13.68
[2017-11-20 00:50] VITALS: BP 144/70; PULSE 93; O2SAT 93
[2017-11-20] MEDS: Calcium 500MG W/Vit D Tablet PO SCH (01:49)
[2017-11-20] MEDS: PATIENT OWN MEDICATION PO SCH (01:49)
[2017-11-20] MEDS: ZOCOR 20MG PO SCH (01:49)
--- NOTE | 2017-11-20 08:10 | XRAY ---
Indication: Abdominal pain. Comparison: Chest exam November 10, 2017. 2 views of the abdomen nonacute and nonobstructed with cholecystectomy clips. Solid organs unremarkable. Osseous structures intact with multilevel degenerative spondylosis, and mild double curvature scoliosis. Single frontal chest demonstrates again CT proven hiatal hernia with food distended intrathoracic stomach and adjacent compressive atelectasis. Heart is not enlarged again demonstrating previous valvular replacement surgery. No new/acute findings. Impression: 1. Negative abdomen. 2. Stable hiatal hernia with intrathoracic stomach and bibasilar atelectasis. Comment: Preliminary interpretation was made by [facility]. No critical discrepancy.
--- NOTE | 2017-11-20 08:12 | XRAY ---
Indication: NG tube placement. Comparison: One day earlier. Single AP chest demonstrates new NG tube tip in CT proven intrathoracic stomach. Remaining chest unchanged. Comment: Preliminary interpretation was made by [facility]. No discrepancy.
[2017-11-20] MEDS ORDERED: Aplisol ID SCH (10:00)
== END 2017-11-20 02:00 | DRG 948 ==
LOC: MED SURG 20:48
PROVIDERS: ADMIT Family Medicine; ATTEND Family Medicine
DX: R53.81 Other malaise (principal); Z98.890 Other specified postprocedural states; Z95.2 Presence of prosthetic heart valve; E03.9 Hypothyroidism, unspecified; I10 Essential (primary) hypertension; K21.9 Gastro-esophageal reflux disease without esophagitis; D64.9 Anemia, unspecified; R41.0 Disorientation, unspecified; N32.81 Overactive bladder; R93.8 Abnormal findings on diagnostic imaging of other specified body structures; R07.9 Chest pain, unspecified; Z79.01 Long term (current) use of anticoagulants; Z79.899 Other long term (current) drug therapy
CPT/HCPCS: 36415; 70450; 71045; 71250; 74018; 74022; 80053; 81000; 83690; 85025; 85027; 85610; 94002; 94003; 94640; 94760; J1650; J2060; J2270; J2550; Q0162; 97110-GP; A9270-GY

== ENCOUNTER 2017-11-24 14:12 | Inpatient (IN) | payer MEDICARE, BC ==
[2017-11-24] MEDS ORDERED: Coumadin 2.5 MG PO SCH (18:00)
[2017-11-24] MEDS ORDERED: ENOXAPARIN SODIUM SQ SCH (21:00)
[2017-11-24] MEDS: ENOXAPARIN SODIUM SQ SCH (21:50)
[2017-11-24] MEDS: ZOCOR 20MG PO SCH (21:50)
[2017-11-25 06:51] LABS: INR 2.04 (0.8-3.0)
--- NOTE | 2017-11-25 08:15 | PCM.HP ---
History of Present Illness - Chief Complaint Chief Complaint: DECONDITIONING R/T POST RIGHT FOOT SURGERY Date: 11/25/17 History of Present Illness: is a 82 year old female. She says she is eating ok no nausea or pain. She knows she is weak. She does not remember being transferred to [place] and says she never saw a Doctor there. She doesn't remember them talking to her about anything. She denies any chest pain, nausea, shortness of breath, abdominal pain. - Review of Systems Constitutional: No Fever, No Chills Eyes: No Symptoms Ears, Nose, & Throat: No Symptoms Respiratory: No Cough, No Short Of Breath Cardiac: No Chest Pain, No Edema, No Syncope Abdominal/Gastrointestinal: No Abdominal Pain, No Nausea, No Vomiting, No Diarrhea Genitourinary Symptoms: No Dysuria Musculoskeletal: No Back Pain, No Neck Pain Skin: No Rash Neurological: No Dizziness, No Focal Weakness, No Sensory Changes Psychological: No Symptoms Endocrine: No Symptoms Hematologic/Lymphatic: No Symptoms Immunological/Allergic: No Symptoms Medications & Allergies Home Medications: Home Medication List Amlodipine Besylate 5 mg [Norvasc 5 mg] 5 mg PO DAILY #30 tablet 04/30/17 [Rx Confirmed 11/24/17] Atorvastatin Calcium 40 mg PO HS #30 tablet 04/30/17 [Rx Confirmed 11/24/17] Levothyroxine Sodium 50 Mcg [Synthroid 50 Mcg] 50 mcg PO DAILY #30 tablet 04/30/17 [Rx Confirmed 11/24/17] Calcium Carbonate/Vitamin D3 [Calcium 600 + Vit D 400 Tablet] 1 tab PO BID 11/09 [History Confirmed 11/24/17] Enoxaparin Sodium [Lovenox] 70 mg SQ Q12H 11/09/17 [History Confirmed 11/24/17] Escitalopram Oxalate 20 mg PO DAILY 11/09/17 [History Confirmed 11/24/17] Fluticasone Propionate [Flonase NASAL] 50 mcg NS DAILY 11/09/17 [History Confirmed 11/24/17] Fluticasone/Salmeterol 230/21 [Advair Hfa 230/21 Mcg COMMON CANISTER*] 1 puff IH BIDPRN PRN 11/09/17 [History Confirmed 11/24/17] Omeprazole 40 mg PO DAILY 11/09/17 [History Confirmed 11/24/17] Tolterodine Tartrate [Tolterodine Tartrate ER] 4 mg PO HS 11/09/17 [History Confirmed 11/24/17] Warfarin Sodium 2.5 mg [Coumadin 2.5 MG] 2.5 mg PO UD 11/09/17 [History Confirmed 11/24/17] Warfarin Sodium 5 mg [Coumadin 5 MG] 5 mg PO UD 11/09/17 [History Confirmed 11/24/17] Allergies/Adverse Reactions: Allergies Allergy/AdvReac Type Severity Reaction Status Date / Time codeine AdvReac Verified 11/15/17 18:57 morphine AdvReac Verified 11/15/17 18:57 - Past Medical History Past Medical History: Yes Neurological History: Peripheral Neuropathy ENT History: Cataracts Cardiac History: Arrhythmia, Coronary Artery Disease, High Cholesterol, Hypertension Respiratory History: Asthma, Pneumonia, Sleep Apnea Endocrine Medical History: Hypothyroidism Musculoskelatal History: Arthritis, Fractures, Osteoarthritis GI Medical History: GERD, Hernia, Other History: No Pertinent History Pyscho-Social History: Depression Reproductive Disorders: No Pertinent History Comment: Hiatal hernia, AFib, anemia - Female History Are you now?: No - Past Surgical History Past Surgical History: Yes Neuro Surgical History: No Pertinent History Cardiac History: CABG, Valve Replacement Respiratory Surgery: No Pertinent History GI Surgical History: Cholecystectomy Genitourinary Surgical Hx: No Pertinent History Musculskeletal Surgical Hx: Orthopedic Surgery Female Surgical History: Hysterectomy Other Surgical History: Cardiac ablasion, fracture left knee and ankle, surgical of right iliac crest, medial ankle posterior lower leg medial heel and left knee, lateral lower leg anteior lowe leg right clavicle fracture non repaired. 11/05/2017 removal of medal plate in RLL/Fusion. - Social History Smoking Status: Never smoker Exposure to second hand smoke: No Alcohol: None Drug Use: none - Physical Exam Vital Signs: Vital Signs - 24 hr Temp Pulse Resp BP Pulse Ox 11/25/17 08:00 98.4 F 50 L 18 168/57 96 11/25/17 07:35 49 L 16 94 L 11/24/17 23:08 57 L 18 92 L 11/24/17 20:00 98.2 F 57 L 18 135/63 96 11/24/17 17:48 98.0 F 57 L 18 169/74 96 General Appearance: no apparent distress, alert Neurologic Exam: alert, oriented x 3, cooperative, normal mood/affect, nml cerebellar function, nml station & gait, sensation nml, other (poor hearing), No motor deficits Eye Exam: PERRL/EOMI, eyes nml inspection Ears, Nose, Throat Exam: normal ENT inspection, pharynx normal, moist mucous membranes, other (edentoulous) Neck Exam: normal inspection, non-tender, supple, full range of motion Respiratory Exam: normal breath sounds, lungs clear, No respiratory distress Cardiovascular Exam: normal peripheral pulses, murmur, other (click) Gastrointestinal/Abdomen Exam: soft, normal bowel sounds, No tenderness, No mass Back Exam: normal inspection, normal range of motion, No CVA tenderness, No vertebral tenderness Extremity Exam: normal inspection, normal range of motion, pelvis stable, other (right leg in cast) Skin Exam: normal color, warm, dry, No rash Lymphatic Exam: No adenopathy Results - Labs Lab/Micro Results: Lab Results-Last 24 Hours 11/25/17 Range/Units 06:06 INR 2.04 (0.8-3.0) - Other Procedures and Tests Respiratory Therapy 11/24/17 23:02 Oxygen NASAL CANNULA 3 lpm 11/24/17 23:03 Respiratory MDI BID 11/25/17 04:19 BiPap/CPAP Assessment ROUTINE Assessment/Plan (1) S/P surgical manipulation of ankle joint Current Visit: Yes Status: Acute Assessment & Plan: she was tranferred for very large symptomatic intrathoracic stomach with pain vomiting concern for obstruction with mass effect on the heart resulting in compression. she was treated with NG decompression but was not receiving therapy and thus is much weaker then prior to transfer she had intermittent confusion there as well they considered [facility] but unclear what made the decision to not do it at the time of hospitalization but she was noted to be tolerating a diet and no signs of heart failure so they discharged her back will work on getting therapeutic inr in the 2.5 to 3.5 range with the lovenox bridge for mitral valve and work on getting PT to improve conditioning with hope to get her back to assisted living. Code(s): Z98.890 - OTHER SPECIFIED POSTPROCEDURAL STATES (2) Hiatal hernia Current Visit: Yes Status: Acute Code(s): K44.9 - DIAPHRAGMATIC HERNIA WITHOUT OBSTRUCTION OR GANGRENE (3) Muscular deconditioning Current Visit: Yes Status: Acute Code(s): R29.898 - OTH SYMPTOMS AND SIGNS INVOLVING THE MUSCULOSKELETAL SYSTEM (4) History of mitral valve replacement Current Visit: Yes Status: Chronic Code(s): Z95.2 - PRESENCE OF PROSTHETIC HEART VALVE (5) Hyperlipidemia Current Visit: Yes Status: Chronic Code(s): E78.5 - HYPERLIPIDEMIA, UNSPECIFIED (6) Hypothyroidism Current Visit: Yes Status: Chronic Code(s): E03.9 - HYPOTHYROIDISM, UNSPECIFIED (7) Hypertension Current Visit: Yes Status: Chronic Code(s): I10 - ESSENTIAL (PRIMARY) HYPERTENSION (8) GERD (gastroesophageal reflux disease) Current Visit: Yes Status: Chronic Code(s): K21.9 - GASTRO-ESOPHAGEAL REFLUX DISEASE WITHOUT ESOPHAGITIS (9) Anemia Current Visit: Yes Status: Chronic Code(s): D64.9 - ANEMIA, UNSPECIFIED (10) Overactive bladder Current Visit: Yes Status: Chronic Code(s): N32.81 - OVERACTIVE BLADDER (11) Mild dementia Current Visit: Yes Status: Acute Assessment & Plan: suspected with worsening due to medical condition she is having increasing difficulty recalling recent events. no focal abnormalities. Code(s): F03.90 - UNSPECIFIED DEMENTIA WITHOUT BEHAVIORAL DISTURBANCE
[2017-11-25] MEDS: Lexapro 10 MG PO SCH (11:37)
[2017-11-25] MEDS: Ditropan 5 MG PO SCH ×2 (11:37→21:49)
[2017-11-25] MEDS: Protonix 40MG Tablet PO SCH (11:37)
[2017-11-25] MEDS: ENOXAPARIN SODIUM SQ SCH ×2 (11:37→21:51)
[2017-11-25] MEDS: SYNTHROID 50 MCG PO SCH (11:38)
[2017-11-25] MEDS: Flonase NASAL NS SCH (11:38)
[2017-11-25] MEDS: NORVASC 5 MG PO SCH (11:39)
[2017-11-25] MEDS: Advair Hfa 230/21 Mcg COMMON CANISTER IH SCH (17:03)
[2017-11-25] MEDS ORDERED: Coumadin 5 MG PO SCH (18:00)
[2017-11-25] MEDS: PERCOCET TABLET 5/325MG PO PRN (20:02)
[2017-11-25] MEDS: ZOCOR 20MG PO SCH (21:49)
[2017-11-26] MEDS: Advair Hfa 230/21 Mcg COMMON CANISTER IH SCH ×2 (07:15→18:10)
[2017-11-26] MEDS ORDERED: Aplisol ID SCH (10:00)
[2017-11-26] MEDS: ENOXAPARIN SODIUM SQ SCH ×2 (10:53→23:15)
[2017-11-26] MEDS: Calcium 500MG W/Vit D Tablet PO SCH ×2 (10:54→23:16)
[2017-11-26] MEDS: Flonase NASAL NS SCH (10:54)
[2017-11-26] MEDS: Lexapro 10 MG PO SCH (10:54)
[2017-11-26] MEDS: Ditropan 5 MG PO SCH ×2 (10:54→23:15)
[2017-11-26] MEDS: Protonix 40MG Tablet PO SCH (10:54)
[2017-11-26] MEDS: NORVASC 5 MG PO SCH (10:54)
[2017-11-26] MEDS: SYNTHROID 50 MCG PO SCH (10:56)
[2017-11-26] MEDS: Coumadin 5 MG PO SCH (17:19)
[2017-11-26] MEDS: ZOCOR 20MG PO SCH (23:15)
[2017-11-26] MEDS: PERCOCET TABLET 5/325MG PO PRN (23:16)
[2017-11-27 06:43] LABS: INR 2.34 (0.8-3.0)
[2017-11-27] MEDS: Advair Hfa 230/21 Mcg COMMON CANISTER IH SCH ×2 (07:24→19:58)
[2017-11-27] MEDS: Lexapro 10 MG PO SCH (09:47)
[2017-11-27] MEDS: Protonix 40MG Tablet PO SCH (09:47)
[2017-11-27] MEDS: ENOXAPARIN SODIUM SQ SCH ×2 (09:47→21:23)
[2017-11-27] MEDS: SYNTHROID 50 MCG PO SCH (09:47)
[2017-11-27] MEDS: Ditropan 5 MG PO SCH ×2 (09:47→21:23)
[2017-11-27] MEDS: Flonase NASAL NS SCH (09:47)
[2017-11-27] MEDS: NORVASC 5 MG PO SCH (09:47)
[2017-11-27] MEDS: Calcium 500MG W/Vit D Tablet PO SCH ×2 (09:47→21:23)
[2017-11-27] MEDS: Coumadin 5 MG PO SCH (17:37)
[2017-11-27] MEDS: ZOCOR 20MG PO SCH (21:23)
[2017-11-28 06:01] LABS: INR 2.52 (0.8-3.0)
[2017-11-28] MEDS: SYNTHROID 50 MCG PO SCH (10:18)
[2017-11-28] MEDS: Lexapro 10 MG PO SCH (10:18)
[2017-11-28] MEDS: NORVASC 5 MG PO SCH (10:18)
[2017-11-28] MEDS: Protonix 40MG Tablet PO SCH (10:18)
[2017-11-28] MEDS: Calcium 500MG W/Vit D Tablet PO SCH ×2 (10:18→21:16)
[2017-11-28] MEDS: Ditropan 5 MG PO SCH ×2 (10:18→21:17)
[2017-11-28] MEDS: Flonase NASAL NS SCH (10:19)
[2017-11-28] MEDS: Coumadin 5 MG PO SCH (17:39)
[2017-11-28] MEDS: Advair Hfa 230/21 Mcg COMMON CANISTER IH SCH (20:00)
[2017-11-28] MEDS: ZOCOR 20MG PO SCH (21:16)
[2017-11-29 06:53] LABS: INR 2.33 (0.8-3.0)
[2017-11-29] MEDS: Advair Hfa 230/21 Mcg COMMON CANISTER IH SCH (07:05)
[2017-11-29 07:41] VITALS: O2SAT 96
[2017-11-29] MEDS: Calcium 500MG W/Vit D Tablet PO SCH (10:03)
[2017-11-29] MEDS: Lexapro 10 MG PO SCH (10:03)
[2017-11-29] MEDS: Ditropan 5 MG PO SCH (10:03)
[2017-11-29] MEDS: NORVASC 5 MG PO SCH (10:03)
[2017-11-29] MEDS: Protonix 40MG Tablet PO SCH (10:03)
[2017-11-29] MEDS: Flonase NASAL NS SCH (10:04)
[2017-11-29] MEDS: SYNTHROID 50 MCG PO SCH (10:04)
[2017-11-29 17:15] VITALS: BP 145/64; PULSE 56
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
[2017-11-29] MEDS ORDERED: Coumadin 2.5 MG PO SCH (18:00)
[2017-12-06] MEDS ORDERED: Aplisol ID SCH (10:00)
== END 2017-11-29 20:00 | disposition home health service (06) | DRG 948 ==
LOC: MED SURG 17:22
PROVIDERS: ADMIT Family Medicine; ATTEND Family Medicine
DX: R53.81 Other malaise (principal); I25.810 Atherosclerosis of coronary artery bypass graft(s) without angina pectoris; Z98.890 Other specified postprocedural states; R29.898 Other symptoms and signs involving the musculoskeletal system; Z95.2 Presence of prosthetic heart valve; E78.5 Hyperlipidemia, unspecified; E03.9 Hypothyroidism, unspecified; I10 Essential (primary) hypertension; K21.9 Gastro-esophageal reflux disease without esophagitis; D64.9 Anemia, unspecified; N32.81 Overactive bladder; M19.90 Unspecified osteoarthritis, unspecified site; F03.90 Unspecified dementia, unspecified severity, without behavioral disturbance, psychotic disturbance, mood disturbance, and anxiety; K44.9 Diaphragmatic hernia without obstruction or gangrene; I48.91 Unspecified atrial fibrillation; G62.9 Polyneuropathy, unspecified; Z79.01 Long term (current) use of anticoagulants; Z79.899 Other long term (current) drug therapy
CPT/HCPCS: 36415; 85610; 94002; 94003; 94640; 94760; J1650; 97110-GP; A9270-GY

== ENCOUNTER 2021-06-22 21:41 | Emergency (ER) | payer MEDICARE, BC ==
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
[2021-06-23] MEDS ORDERED: TYLENOL 325 MG PO STA (00:11)
[2021-06-23] MEDS ORDERED: TYLENOL 325 MG ONE (00:13)
[2021-06-23] MEDS ORDERED: MORPHINE SULFATE 2 MG INJ IM ONE (00:43)
[2021-06-23] MEDS ORDERED: ZOFRAN ODT 4 MG PO ONE (00:44)
[2021-06-23] MEDS ORDERED: ZOFRAN ODT 4 MG ONE (00:54)
[2021-06-23] MEDS ORDERED: MORPHINE SULFATE 2 MG INJ ONE (00:54)
[2021-06-23 01:20] VITALS: BP 157/78; PULSE 46; O2SAT 91
--- NOTE | 2021-06-23 08:36 | XRAY ---
Indication: Pain following fall one week ago. Comparison: None. AP pelvis and 2 view right hip demonstrates osteopenia, minimal bilateral hip degenerative joint space narrowing, left greater trochanter heterotopic ossifications, and mild lower lumbar degenerative changes. No other bony, articular, or soft tissue abnormalities. Comment: Preliminary interpretation made by [facility]. No critical discrepancy.
--- NOTE | 2021-06-23 08:38 | XRAY ---
Indication: Pain following fall one week ago. Comparison: None. 2 view right femur demonstrates osteopenia, minimal hip degenerative joint space narrowing, mild medial/lateral knee joint degenerative chondrocalcinosis, and mild scattered vascular calcifications. No other bony, articular, or soft tissue abnormalities. Comment: Preliminary interpretation made by [facility]. No critical discrepancy.
== END 2021-06-23 01:26 | disposition home or self-care (01) ==
LOC: ED 21:41
DX: M25.551 Pain in right hip (principal); R00.1 Bradycardia, unspecified; Z91.81 History of falling; I25.10 Atherosclerotic heart disease of native coronary artery without angina pectoris; Z98.61 Coronary angioplasty status; Z95.1 Presence of aortocoronary bypass graft; I10 Essential (primary) hypertension; Z79.899 Other long term (current) drug therapy; E78.00 Pure hypercholesterolemia, unspecified
CPT/HCPCS: 73502; 73552; 93225; 96372; 99284; J2270; Q0162; A9270-GY

== ENCOUNTER 2021-12-18 20:51 | Observation (INO) | payer MEDICARE, BC ==
[2021-12-18] MEDS ORDERED: FEVERALL 650 MG PR STA (21:19)
[2021-12-18] MEDS ORDERED: TORAdol 30 mg Injection IV ONE (21:20)
[2021-12-18] MEDS ORDERED: DECADRON 10MG INJ. IV ONE (21:21)
[2021-12-18] MEDS ORDERED: TORAdol 30 mg Injection ONE (21:25)
[2021-12-18] MEDS ORDERED: FEVERALL 650 MG ONE (21:25)
[2021-12-18] MEDS ORDERED: Sodium Chloride 0.9% 1000 ML 1,000 ML ONE (21:26)
[2021-12-18] MEDS ORDERED: DECADRON 10MG INJ. ONE (21:26)
[2021-12-18] MEDS ORDERED: Sodium Chloride 0.9% 1000 ML 1,000 ML IV SCH (21:30)
[2021-12-18] MEDS ORDERED: Ativan 2 MG/1 ML VIAL IV STA (21:34)
[2021-12-18] MEDS ORDERED: Ativan 2 MG/1 ML VIAL ONE ×2 (21:35→22:22)
[2021-12-18 21:41] LABS: Absolute Neutrophil Ct (ANC) 5.98 (1.4-6.9); Basophil (Absolute #) 0.04 (0-0.4); Eosinophil % 0.5 % (0.00-5.0); Eosinophil (Absolute #) 0.05 (0-0.5); Hemoglobin 15.7 gm/dl (12.0-16.0); Lymphocyte (Absolute #) 2.19 (1.0-4.6); Lymphocytes % 23.7 % (24.0-44.0); Mean Cell Volume 92.3 fl (78-100); Mean Corpuscular Hemoglobin 30.2 pg (26-32); Mean Corpuscular Hgb Concent. 32.7 g/dl (32-36); Mean Platelet Volume 10.5 fl (7.5-11.0); Monocyte (Absolute #) 0.98 (0.0-1.3); Monocytes % 10.6 % (0.0-12.0); Neutrophil % 64.8 % (36.0-66.0); Platelet Count 238 K/mm3 (150-450); Red Cell Distribution Width 15.2 % (11.5-14.0); White Blood Count 9.2 K/mm3 (4.0-10.5)
[2021-12-18 21:48] LABS: INR 3.24 (0.8-3.0); PROTIME 38.2 SECONDS (9.4-12.5)
[2021-12-18 21:51] LABS: PTT 55.8 SECONDS (25.1-36.5)
[2021-12-18] MEDS ORDERED: Ativan 2 MG/1 ML VIAL IV ONE (22:22)
[2021-12-18 22:26] LABS: ALBUMIN 4.1 g/dL (3.5-5.0); ANION GAP 8.6 MEQ/L (5-15); BILIRUBIN,TOTAL 0.9 mg/dL (0.2-1.3); Calcium 9.5 mg/dL (8.4-10.2); Creatinine 1 0.98 mg/dL (0.52-1.04); EST GLOMERULAR FILTRATION RATE 57.2 ML/MIN; Potassium 3.7 mmol/L (3.5-5.1); Total Protein 7.3 g/dL (6.3-8.2)
[2021-12-18] MEDS ORDERED: Ketamine HCl 50 MG/ML IV ONE ×2 (23:06→23:59)
[2021-12-19] LABS: INFLUENZA A NEGATIVE (NEGATIVE); INFLUENZA B NEGATIVE (NEGATIVE); RESPIRATORY SYNCTIAL VIRUS NEGATIVE (Negative); SARS-CoV-2 Xpert Express NEGATIVE (NEGATIVE)
--- NOTE | 2021-12-19 01:11 | ERPHSYRPT ---
- History of Present Illness Time Seen by Provider: 12/18/21 21:10 Source: patient Exam Limitations: no limitations Patient Subjective Stated Complaint: rt leg pain Triage Nursing Assessment: pt c/o rt leg pain x1 week. Pain starts at rt hip and goes to thigh, and knee. No bruising or edema noted. Pt is grasping and holding onto her leg, keeping leg crossed in bed. Physician History: Patient is a 86-year-old female presents to emergency department for evaluation of low back pain and right hip pain. Patient states she has been contending with this pain for approximately 2 years. The pain is gotten significantly worse over the past 3 to 4 days. No trauma. No fever. No change in bowel bladder function. No saddle anesthesia. No recent back procedures. Symptoms are constant. Symptoms are moderate to severe in intensity. Pain worse with movement palpation and prolonged static postures. Pain improves with rest and crossing her legs. Leaning forward also improves patient's symptoms. Daughter at bedside. They voiced no other complaints or concerns at this time. Timing/Duration: day(s) (Chronic pain significantly worse over the past 3 days) Severity: moderate Modifying Factors: Improves With: movement Associated Symptoms: denies symptoms, No nausea, No vomiting, No shortness of breath, No fever, No loss of appetite, No malaise, No syncope Allergies/Adverse Reactions: levofloxacin [From Levaquin] Adverse Reaction (Severe, Verified 12/18/21 21:22) confusion nitrofurantoin [From Macrobid] Adverse Reaction (Severe, Verified 12/18/21 21:22) confusion Home Medications: Calcium Carbonate/Vitamin D3 [Calcium 600-Vit D3 400 Tablet] 1 tab PO HS 11/09/17 [History] Escitalopram Oxalate 20 mg PO DAILY 11/09/17 [History] Fluticasone/Salmeterol 230/21 [Advair Hfa 230/21 Mcg COMMON CANISTER*] 1 puff IH BIDPRN PRN 11/09/17 [History] Omeprazole 40 mg PO DAILY 11/09/17 [History] Tolterodine Tartrate [Tolterodine Tartrate ER] 4 mg PO HS 11/09/17 [History] Hx Tetanus, Diphtheria Vaccination/Date Given: Yes Hx Influenza Vaccination/Date Given: Yes Hx Pneumococcal Vaccination/Date Given: Yes Immunizations Up to Date: Yes Travel Risk - International Travel Have you traveled outside of the country in past 3 weeks: No - Coronavirus Screening Are you exhibiting any of the following symptoms?: No Close contact with a COVID-19 positive Pt in past 14-21 Days: No - Vaccine Status Have you recieved a Covid-19 vaccination: Yes Terminal Supervisor: Moderna - Vaccination Dates Date of 2cond Vaccination (if applicable): . - Review of Systems Constitutional: No Symptoms, No Fever, No Chills Eyes: No Symptoms Ears, Nose, & Throat: No Symptoms Respiratory: No Symptoms, No Cough, No Dyspnea Cardiac: No Symptoms, No Chest Pain, No Edema, No Syncope Abdominal/Gastrointestinal: No Symptoms, No Abdominal Pain, No Nausea, No Vomiting, No Diarrhea Genitourinary Symptoms: No Symptoms, No Dysuria Musculoskeletal: No Symptoms, No Back Pain, No Neck Pain Skin: No Symptoms, No Rash Neurological: No Symptoms, No Dizziness, No Focal Weakness, No Sensory Changes Psychological: No Symptoms Endocrine: No Symptoms Hematologic/Lymphatic: No Symptoms Immunological/Allergic: No Symptoms All Other Systems: Reviewed and Negative - Past Medical History Pertinent Past Medical History: Yes Neurological History: Peripheral Neuropathy ENT History: Cataracts Cardiac History: Arrhythmia, Coronary Artery Disease, High Cholesterol, Hypertension Respiratory History: Asthma, Pneumonia, Sleep Apnea Endocrine Medical History: Hypothyroidism Musculoskeletal History: Arthritis, Fractures, Osteoarthritis GI Medical History: GERD, Hernia, Other History: Other Psycho-Social History: Depression Female Reproductive Disorders: No Pertinent History Other Medical History: Hiatal hernia, AFib, anemia, UTI - Past Surgical History Past Surgical History: Yes Neuro Surgical History: No Pertinent History Cardiac: CABG, Valve Replacement Respiratory: No Pertinent History Gastrointestinal: Cholecystectomy Genitourinary: No Pertinent History Musculoskeletal: Orthopedic Surgery Female Surgical History: Hysterectomy Other Surgical History: Cardiac ablasion, fracture left knee and ankle, surgical of right iliac crest, medial ankle posterior lower leg medial heel and left knee, lateral lower leg anteior lowe leg right clavicle fracture non repaired. 11/05/2017 removal of medal plate in RLL/Fusion. - Social History Smoking Status: Never smoker Exposure to second hand smoke: No Drug Use: none Patient Lives Alone: Yes (assisted living) - Nursing Vital Signs Nursing Vital Signs: Initial Vital Signs Temperature 97.1 F 12/18/21 21:00 Pulse Rate 91 H 12/18/21 21:00 Respiratory Rate 18 12/18/21 21:00 Blood Pressure 181/94 12/18/21 21:00 O2 Sat by Pulse Oximetry 96 12/18/21 21:00 Pain Scale Pain Intensity 0 - Physical Exam General Appearance: no apparent distress, mild distress (Mild distress due to ba ck pain referring into the right hip and thigh region.), alert Eye Exam: PERRL/EOMI, eyes nml inspection Ears, Nose, Throat Exam: normal ENT inspection, TMs normal, pharynx normal, moist mucous membranes Neck Exam: normal inspection, non-tender, supple, full range of motion Respiratory Exam: normal breath sounds, lungs clear, airway intact, No respiratory distress Cardiovascular Exam: regular rate/rhythm, normal heart sounds, normal peripheral pulses Gastrointestinal/Abdomen Exam: soft, normal bowel sounds, No tenderness, No mass Back Exam: normal inspection, normal range of motion, No CVA tenderness, No vertebral tenderness Extremity Exam: normal inspection, normal range of motion, pelvis stable Neurologic Exam: alert, oriented x 3, cooperative, normal mood/affect, nml cerebellar function, nml station & gait, sensation nml, No motor deficits Skin Exam: normal color, warm, dry, No rash Lymphatic Exam: No adenopathy SpO2: 95 Procedures - Procedural Sedation Indication: other (Pain control during imaging study) Preparation: consent signed, capnographry, iv access, previous anesthia/sedation without complications, constant attendance, manager monitoring, oxygen, procedure explained, pulse oximeter, suction Sedation Parenteral: Ketamine, Ativan Response during procedure: light sedation, handled secretions adequately, maintained airway well, oxygenation stable, vital signs stable Post-Procedure Response: return to baseline mental status Progress: No complications during or after procedure/imaging study - Course Nursing assessment & vital signs reviewed: Yes - CT Exams Abdomen/Pelvis CT Interpretation: Tele-radiologist Report (No evidence of aortic aneurysm or dissection. Severe proximal celiac artery stenosis moderate to severe proximal left renal artery stenosis. Redemonstrated large hiatal hernia containing stomach) Lumbar Spine CT Interpretation: Tele-radiologist Report (No evidence of acute fracture or subluxation. Multilevel spondylosis and lower lumbar degenerative changes. Lower lumbar spine bilateral facet hypertrophy. Multilevel disc space narrowing diffuse disc bulging and mild vacuum phenomena. L3-L4 moderate to severe spinal stenosis and right foraminal) Ordered Tests: Active Orders 24 hr Category Date Time Status CO2 Monitoring STAT Care 12/19/21 00:09 Active IV Insertion STAT Care 12/18/21 21:19 Active Oxygen-ED Only Nasal Cannula 3 lpm Care 12/18/21 22:09 Active Pulse Oximetry (ED) STAT Care 12/18/21 21:19 Active CTA ABD/PEL W AND/OR W/O CONTR [CT] Stat Exams 12/18/21 00:54 Taken RECONSTRUCTION [CT] Routine Exams 12/18/21 00:55 Taken BLOOD CULTURE Stat Lab 12/18/21 21:25 Received CBC W DIFF Stat Lab 12/18/21 21:30 Completed CMP Stat Lab 12/18/21 21:30 Completed ESR [Erythrocyte Sedimentation Rate] Stat Lab 12/18/21 21:30 Completed Lactic Acid Stat Lab 12/18/21 21:32 Completed PROTIME WITH INR Stat Lab 12/18/21 21:30 Completed PTT Stat Lab 12/18/21 21:30 Completed Medication Summary Generic Name Dose Route Start Last Admin Trade Name Freq PRN Reason Stop Dose Admin Sodium Chloride 1,000 mls @ 100 mls/hr 12/18/21 21:30 12/18/21 21:31 Sodium Chloride 0.9% 1000 Ml IV 01/17/22 21:29 100 mls/hr .Q10H WILDA Administration Discontinued Medications Generic Name Dose Route Start Last Admin Trade Name Freq PRN Reason Stop Dose Admin Acetaminophen 975 mg 12/18/21 21:19 12/18/21 21:32 Acetaminophen 650 Mg Supp.Rect MS 12/18/21 21:20 975 mg STAT STA Administration Acetaminophen Confirm 12/18/21 21:25 Acetaminophen 650 Mg Supp.Rect Administered 12/18/21 21:26 Dose 1,300 mg .ROUTE .STK-MED ONE Dexamethasone Sodium Phosphate 10 mg 12/18/21 21:21 12/18/21 21:31 Dexamethasone Sod Phosphate 10 Mg/Ml IV 12/18/21 21:22 10 mg STAT ONE Administration Dexamethasone Sodium Phosphate Confirm 12/18/21 21:26 Dexamethasone Sod Phosphate 10 Mg/Ml Administered 12/18/21 21:27 Dose 10 mg .ROUTE .STK-MED ONE Ketamine HCl 20 mg 12/18/21 23:06 12/18/21 23:36 Ketamine Hcl 50 Mg/Ml IV 12/18/21 23:07 20 mg STAT ONE Administration Ketamine HCl 20 mg 12/18/21 23:59 12/19/21 00:01 Ketamine Hcl 50 Mg/Ml IV 12/19/21 00:00 20 mg STAT ONE Administration Ketorolac Tromethamine 30 mg 12/18/21 21:20 12/18/21 21:31 Ketorolac Tromethamine 30 Mg/Ml Inj IV 12/18/21 21:21 30 mg STAT ONE Administration Ketorolac Tromethamine Confirm 12/18/21 21:25 Ketorolac Tromethamine 30 Mg/Ml Inj Administered 12/18/21 21:26 Dose 30 mg .ROUTE .STK-MED ONE Lorazepam 0.5 mg 12/18/21 21:34 12/18/21 21:36 Lorazepam 2 Mg/1 Ml 2 Mg Vial IV 12/18/21 21:35 0.5 mg ONCE STA Administration Lorazepam Confirm 12/18/21 21:35 Lorazepam 2 Mg/1 Ml 2 Mg Vial Administered 12/18/21 21:36 Dose 2 mg .ROUTE .STK-MED ONE Lorazepam 1 mg 12/18/21 22:22 12/18/21 22:30 Lorazepam 2 Mg/1 Ml 2 Mg Vial IV 12/18/21 22:23 1 mg STAT ONE Administration Lorazepam Confirm 12/18/21 22:22 Lorazepam 2 Mg/1 Ml 2 Mg Vial Administered 12/18/21 22:23 Dose 2 mg .ROUTE .STK-MED ONE Lab/Rad Data: Laboratory Result Diagrams 12/18/21 21:30 12/18/21 21:30 Laboratory Results 12/18/21 12/18/21 12/18/21 Range/Units 23:21 21:32 21:30 WBC (4.0-10.5) K/mm3 RBC (4.1-5.4) M/mm3 Hgb (12.0-16.0) gm/dl Hct (35-47) % MCV (78-100) fl MCH (26-32) pg MCHC (32-36) g/dl RDW (11.5-14.0) % Plt Count (150-450) K/mm3 MPV (7.5-11.0) fl Gran % (36.0-66.0) % Eos # (Auto) (0-0.5) Absolute Lymphs (auto) (1.0-4.6) Absolute Monos (auto) (0.0-1.3) Lymphocytes % (24.0-44.0) % Monocytes % (0.0-12.0) % Eosinophils % (0.00-5.0) % Basophils % (0.0-0.4) % Absolute Granulocytes (1.4-6.9) Basophils # (0-0.4) ESR (0-20) mm/hr PT 38.2 H (9.4-12.5) SECONDS INR 3.24 H (0.8-3.0) APTT 55.8 H (25.1-36.5) SECONDS Sodium (137-145) mmol/L Potassium (3.5-5.1) mmol/L Chloride (98-107) mmol/L Carbon Dioxide (22-30) mmol/L Anion Gap (5-15) MEQ/L BUN (7-17) mg/dL Creatinine (0.52-1.04) mg/dL Estimated GFR ML/MIN Glucose (74-106) mg/dL Lactic Acid 2.0 (0.4-2.0) Calcium (8.4-10.2) mg/dL Total Bilirubin (0.2-1.3) mg/dL AST (14-36) U/L ALT (0-35) U/L Alkaline Phosphatase (38-126) U/L Serum Total Protein (6.3-8.2) g/dL Albumin (3.5-5.0) g/dL Influenza Type A Ag NEGATIVE (NEGATIVE) Influenza Type B Ag NEGATIVE (NEGATIVE) RSV (PCR) NEGATIVE (Negative) SARS-CoV-2 (PCR) NEGATIVE (NEGATIVE) 12/18/21 12/18/21 12/18/21 Range/Units 21:30 21:30 21:30 WBC 9.2 (4.0-10.5) K/mm3 RBC 5.20 (4.1-5.4) M/mm3 Hgb 15.7 (12.0-16.0) gm/dl Hct 48.0 H (35-47) % MCV 92.3 (78-100) fl MCH 30.2 (26-32) pg MCHC 32.7 (32-36) g/dl RDW 15.2 H (11.5-14.0) % Plt Count 238 (150-450) K/mm3 MPV 10.5 (7.5-11.0) fl Gran % 64.8 (36.0-66.0) % Eos # (Auto) 0.05 (0-0.5) Absolute Lymphs (auto) 2.19 (1.0-4.6) Absolute Monos (auto) 0.98 (0.0-1.3) Lymphocytes % 23.7 L (24.0-44.0) % Monocytes % 10.6 (0.0-12.0) % Eosinophils % 0.5 (0.00-5.0) % Basophils % 0.4 (0.0-0.4) % Absolute Granulocytes 5.98 (1.4-6.9) Basophils # 0.04 (0-0.4) ESR 19 (0-20) mm/hr PT (9.4-12.5) SECONDS INR (0.8-3.0) APTT (25.1-36.5) SECONDS Sodium 137 (137-145) mmol/L Potassium 3.7 (3.5-5.1) mmol/L Chloride 100 (98-107) mmol/L Carbon Dioxide 32 H (22-30) mmol/L Anion Gap 8.6 (5-15) MEQ/L BUN 23 H (7-17) mg/dL Creatinine 0.98 (0.52-1.04) mg/dL Estimated GFR 57.2 ML/MIN Glucose 106 (74-106) mg/dL Lactic Acid (0.4-2.0) Calcium 9.5 (8.4-10.2) mg/dL Total Bilirubin 0.90 (0.2-1.3) mg/dL AST 44 H (14-36) U/L ALT 20 (0-35) U/L Alkaline Phosphatase 101 (38-126) U/L Serum Total Protein 7.3 (6.3-8.2) g/dL Albumin 4.1 (3.5-5.0) g/dL Influenza Type A Ag (NEGATIVE) Influenza Type B Ag (NEGATIVE) RSV (PCR) (Negative) SARS-CoV-2 (PCR) (NEGATIVE) - Progress Progress: improved Progress Note: Patient is Covid negative. Work-up reveals severe spinal and foraminal stenosis at L3-4 L4-5 on the same side of patient's pain. Patient's pain is likely due to nerve impingement. 12/19/21 01:26 Covid test negative. Case discussed with Dr. Shay accepts admission to observation. Plan of care discussed with patient and daughter who is at bedside. They agreed admission [facility] for further evaluation and treatment. Patient currently has an outpatient MRI ordered for tomorrow. Patient will likely have her MRI done as an inpatient tomorrow. Patient's pain is well controlled this time. No indication for further work-up. Portions of this note were created with voice recognition technology. There may be grammatical, spelling, punctuation or sound alike errors 12/19/21 01:[address] Sabrina Will see patient in: hospital (observation) Counseled pt/family regarding: lab results, diagnosis, rad results - Departure Departure Disposition: Observation Clinical Impression: Atherosclerotic disease of aorta, Left renal artery stenosis, Large hiatal hernia, Dextroscoliosis of thoracolumbar spine, Arthritis of spine, Narrowing of intervertebral disc space, Diffuse disc bulging, L3-L4 moderate to severe spinal stenosis, L4-L5 severe spinal stenosis, L3-L4 severe right foraminal stenosis, L4-L5 severe right foraminal stenosis Condition: Stable Critical Care Time: No Referrals: HOPE GOYAL MD [Primary Care Provider] - Follow up/PCP as directed
[2021-12-19] MEDS ORDERED: Sodium Chloride 0.9% 1000 ML 1,000 ML IV SCH (01:56)
[2021-12-19] MEDS ORDERED: Hydromorphone 1 mg/ml Injection IV PRN (01:56)
[2021-12-19 05:02] LABS: Absolute Neutrophil Ct (ANC) 3.68 (1.4-6.9); Basophil (Absolute #) 0.01 (0-0.4); Eosinophil (Absolute #) 0 (0-0.5); Hematocrit 45.7 % (35-47); Hemoglobin 14.7 gm/dl (12.0-16.0); Lymphocyte (Absolute #) 0.49 (1.0-4.6); Lymphocytes % 11.6 % (24.0-44.0); Mean Cell Volume 93.1 fl (78-100); Mean Corpuscular Hemoglobin 29.9 pg (26-32); Mean Corpuscular Hgb Concent. 32.2 g/dl (32-36); Mean Platelet Volume 10.4 fl (7.5-11.0); Monocyte (Absolute #) 0.06 (0.0-1.3); Monocytes % 1.4 % (0.0-12.0); Neutrophil % 86.8 % (36.0-66.0); Platelet Count 203 K/mm3 (150-450); Red Blood Count 4.91 M/mm3 (4.1-5.4); Red Cell Distribution Width 15.3 % (11.5-14.0); White Blood Count 4.2 K/mm3 (4.0-10.5)
[2021-12-19 05:27] LABS: ALBUMIN 3.7 g/dL (3.5-5.0); ALKALINE PHOSPHATASE 100 U/L (38-126); BLOOD UREA NITROGEN 26 mg/dL (7-17); CHLORIDE 103 mmol/L (98-107); Calcium 9.2 mg/dL (8.4-10.2); Carbon Dioxide 25 mmol/L (22-30); Creatinine 1 0.75 mg/dL (0.52-1.04); EST GLOMERULAR FILTRATION RATE > 60.0 ML/MIN; Glucose 189 mg/dL (74-106); Potassium 4.4 mmol/L (3.5-5.1); SGOT/AST 43 U/L (14-36); SGPT/ALT 20 U/L (0-35); SODIUM 135 mmol/L (137-145); Total Protein 6.7 g/dL (6.3-8.2)
--- NOTE | 2021-12-19 08:49 | XRAY ---
Indication: Abdomen pain. Aortic dissection. Conventional contrast enhanced CTA abdomen/pelvis performed using 80 cc Isovue 370 contrast. Two-dimensional sagittal and coronal reformatted images obtained. Additional 3-dimensional reformatted images obtained using a separate workstation. Comparison: None Study is slightly degraded by respiration artifact throughout. Mild scattered aortoiliac calcifications without aneurysm/dissection. Normal branching celiac, superior mesenteric, and inferior mesenteric arteries with minimal calcifications at their origins without critical stenosis or poststenotic dilatation. A single renal artery supplies each kidney with moderate calcifications at origin of left producing 99% stenosis. No free fluid or evidence for active hemorrhage. Right lung base demonstrates a very large hiatal hernia with intrathoracic stomach and compressive atelectasis. No infiltrate or effusion. Heart is not enlarged. Noncontrasted stomach and bowel loops appear nonobstructed. Previous cholecystectomy and hysterectomy. No free fluid/air. Incidental tiny hepatic/splenic calcified granulomas. Remaining liver, pancreas, spleen, adrenal glands, kidneys, ureters, and bladder are unremarkable. No pathologic retroperitoneal lymphadenopathy. Osseous structures intact with osteopenia, mild double curvature scoliosis, mild multilevel thoracolumbar degenerative spondylosis, and 2-3 mm L4 spondylolisthesis. Mild/moderate degenerative changes of both hips. Impression: 1. Mild scattered arteriosclerotic disease. Calcifications origin left main renal artery producing 99% stenosis. 2. Remaining CTA abdomen/pelvis is negative. 3. Very large hiatal hernia with right base intrathoracic stomach and compressive atelectasis. 4. Osteopenia, double curvature scoliosis, multilevel degenerative spondylosis, grade 1 L4 spondylolisthesis, and bilateral hip degenerative arthropathy. Comment: Preliminary interpretation made by C. No critical discrepancy.
--- NOTE | 2021-12-19 08:51 | XRAY ---
Indication: Sagittal, coronal, and axial reformatted images of lumbar spine performed using raw data from same day CTA abdomen/pelvis exam. Comparison: None Osseous structures demineralized. There is mild multilevel thoracolumbar degenerative spondylosis greatest at L4-L5 level with there is spinal canal and bilateral foraminal stenosis due to broad-based disc bulge and 2-3 mm spondylolisthesis. No acute fracture or suspicious bony lesions. Sagittal and coronal reformatted images demonstrates mild double curvature thoracolumbar scoliosis. No acute compression fracture. CTA abdomen/pelvis reported separately. Impression: Osteopenia, multilevel degenerative spondylosis, grade 1 L4 spondylolisthesis, and double curvature scoliosis. Comment: Preliminary interpretation made by [facility]. No critical discrepancy.
[2021-12-19 09:03] LABS: Slide Review 1 YES
[2021-12-19] MEDS ORDERED: SUBLIMAZE 250 MCG/5 ML IV PRN (09:26)
[2021-12-19] MEDS ORDERED: Advair Hfa 230/21 Mcg COMMON CANISTER IH PRN (09:35)
[2021-12-19] MEDS: Hydromorphone 1 mg/ml Injection IV PRN ×2 (09:55→13:52)
--- NOTE | 2021-12-19 12:18 | XRAY ---
Indication: assisted placement. Comparison: November 10, 2017. Portable chest again demonstrates recent CT proven right lung base intrathoracic stomach. Remaining lungs again clear. Heart not enlarged again with CABG. No new/acute findings. Impression: Continued nonacute chest with chronic features.
[2021-12-19] MEDS ORDERED: PERCOCET TABLET 5/325MG PO PRN (14:34)
[2021-12-19] MEDS ORDERED: Duragesic 25MCG Patch TD SCH (15:00)
[2021-12-19] MEDS: NEURONTIN 300 MG PO SCH ×2 (15:13→21:19)
[2021-12-19] MEDS ORDERED: Lexapro 10 MG PO SCH (22:00)
[2021-12-19] MEDS ORDERED: NON-FORMULARY ITEM (Calcium Carbonate/Vitamin D3 [Calcium 600-Vit D3 400 Tablet] 1 EACH Ta PO SCH (22:00)
[2021-12-19] MEDS ORDERED: NORVASC 5 MG PO SCH (22:00)
[2021-12-19] MEDS ORDERED: Protonix 40MG Tablet PO SCH (22:00)
[2021-12-19] MEDS ORDERED: SYNTHROID 50 MCG PO SCH (22:00)
[2021-12-19] MEDS ORDERED: NON-FORMULARY ITEM (Omeprazole [Omeprazole] 40 MG Capsule.Dr) PO SCH (22:00)
[2021-12-19] MEDS ORDERED: Calcium 500MG W/Vit D Tablet PO SCH (22:00)
[2021-12-19] MEDS ORDERED: Ditropan XL 5 MG PO SCH (22:00)
[2021-12-19] MEDS ORDERED: NON-FORMULARY ITEM (Escitalopram Oxalate [Escitalopram Oxalate] 20 MG Tablet) PO SCH (22:00)
[2021-12-19] MEDS ORDERED: NON-FORMULARY ITEM (Tolterodine Tartrate [Tolterodine Tartrate Er] 4 MG Cap.Er.24h) PO SCH (22:00)
[2021-12-19] MEDS ORDERED: ZOCOR 20MG PO SCH (22:00)
[2021-12-19] MEDS ORDERED: LIPITOR 40MG PO SCH (22:00)
[2021-12-20 09:46] VITALS: O2SAT 95
[2021-12-20] MEDS: NEURONTIN 300 MG PO SCH (10:14)
[2021-12-20 11:38] VITALS: BP 139/65; PULSE 52
[2021-12-20] MEDS ORDERED: PERCOCET TABLET 5/325MG PO ONE (12:00)
[2021-12-20] MEDS ORDERED: Neurontin 100 MG PO ONE (12:00)
[2021-12-20] MEDS ORDERED: Neurontin 400 MG PO SCH (15:00)
[2021-12-20] MEDS ORDERED: OXYCODONE-ACETAMINOPHEN 10-325 PO PRN (17:00)
--- NOTE | 2022-01-08 10:05 | SSS ---
DISCHARGE DIAGNOSES: 1) SEVERE SCIATICA PAIN. 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 HISTORY: The patient is an 86-year-old residential patient who was having severe pain from her sciatic nerve issues. She has been in the residential but with increasing pain was becoming intolerable. She presented to the emergency room. 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 The patient had to have sedation to be able to do the evaluation as she was flexing her leg and was having significant amounts of pain. This was accomplished in the emergency room to evaluate the area for more complete evaluation. PAST MEDICAL/SURGICAL HISTORY: The patient's medical history otherwise significant for peripheral neuropathy, had cataracts, arrhythmia, coronary artery disease, hyperlipidemia, hypertension, asthma, pneumonia, sleep apnea, hypothyroidism, arthritis, fractures, osteoarthritis, gastroesophageal reflux disease, hiatal hernia. The patient had cardiac ablation, fractured knee and ankle, surgery of right iliac crest. She had a clavicle fracture, removal of medial plate/right lower fusion. HOME MEDICATIONS: Includes calcium, Lexapro 20 mg a day, Advair 230/21 mcg 1 puff b.i.d., omeprazole 40 mg a day, tolterodine tartrate extended release 4 mg at night. ALLERGIES: LEVAQUIN. NITROFURANTOIN. PHYSICAL EXAMINATION: The patient's vital signs on admission showed her temperature 97.1F, pulse 91, respiratory rate 18 and blood pressure 181/94. O2 saturation 96%. HEENT: Normocephalic, atraumatic. Pupils equal round reactive to light. Extraocular movements intact. Oropharynx is dry. NECK: Supple without lymphadenopathy, thyromegaly or JVD. CHEST: Clear to auscultation. HEART: Regular rate and rhythm without murmurs, rubs or gallops. ABDOMEN: Soft. No palpable masses. EXTREMITIES: Without cyanosis, clubbing or edema. NEUROLOGIC: The patient is on my evaluation lethargic due to medications to control her pain. We are unable to test her neurologic status otherwise due to her drowsiness. HOSPITAL COURSE: The patient was admitted for pain control. She was given a Fentanyl patch and is receiving lorazepam. We had to discontinue these medications due to the patient's sedation. She is unable to take anything p.o. due to risk of aspiration under these circumstances. The next morning the patient was better after discontinuing her Fentanyl patch and the Ativan. She was still somewhat drowsy but awake to light stimuli. It was felt that the patient at this point being well enough to go back to her residential on her usual home medications.
== END 2021-12-20 15:10 | disposition home or self-care (01) ==
LOC: ED 20:51 → MED SURG 12-19 01:44
PROVIDERS: ADMIT Family Medicine; ATTEND Family Medicine
DX: M54.31 Sciatica, right side (principal); M79.604 Pain in right leg; I70.1 Atherosclerosis of renal artery; I70.0 Atherosclerosis of aorta; I25.10 Atherosclerotic heart disease of native coronary artery without angina pectoris; E78.00 Pure hypercholesterolemia, unspecified; I10 Essential (primary) hypertension; Z79.899 Other long term (current) drug therapy; Z20.828 Contact with and (suspected) exposure to other viral communicable diseases
CPT/HCPCS: 0241U; 36000; 36415; 71045; 74174; 76376; 80053; 83605; 85025; 85610; 85652; 85730; 86140; 87040; 93268; 94760; 94762; 96374; 96375; 96376; 97161; 99284; G0378; J1100; J1170; J1885; J2060; A9270-GY

== ENCOUNTER 2022-01-21 10:08 | Day surgery (SDC) | payer MEDICARE, BC ==
[2022-01-21] MEDS ORDERED: Sodium Chloride 0.9(Preservative Free) 10 ML IJ ONE (10:09)
[2022-01-21] MEDS ORDERED: Depo-Medrol 40 MG/ML IM ONE (10:09)
[2022-01-21 10:54] LABS: INR 1.03 (0.8-3.0); PROTIME 12.1 SECONDS (9.4-12.5)
[2022-01-21] MEDS ORDERED: Lactated Ringers 1,000 ML IV ONE (11:25)
[2022-01-21] MEDS ORDERED: DIPRIVAN 200 MG/20 ML IV ONE (11:57)
--- NOTE | 2022-01-21 12:43 | XRAY ---
Indication: Right L3-L5 transforaminal FREDERIC. Intraoperative fluoroscopy provided for 34 seconds. 4 digital spot image submitted for interpretation demonstrates posterior needle tips projecting over the expected right L3 and L4 nerve roots. Small amount of contrast injected for needle tip placement. Correlate with intraoperative findings/report.
--- NOTE | 2022-01-22 15:17 | XRAY ---
34 seconds fluoroscopy time in surgery for right L3-L5 transforaminal FREDERIC.
== END 2022-01-21 12:18 | disposition home or self-care (01) ==
LOC: SDC-PAIN 10:08
PROVIDERS: ATTEND Psychiatry & Neurology Pain Medicine
DX: M54.16 Radiculopathy, lumbar region (principal); Z79.01 Long term (current) use of anticoagulants; Z79.899 Other long term (current) drug therapy
CPT/HCPCS: 36415; 64483; 64484; 72100; 77002; 77003; 85610; 99100; J1030; J2704; Q9966